=== PATIENT | female | born 1935 | race Caucasian/White ===

== ENCOUNTER 2020-08-06 12:39 | Inpatient (IN) ==
[~2020-08-06 12:39] MED LIST: Total Joint Mixture (50 ml) INTRAART ONE
[2020-08-06] MEDS ORDERED: Gabapentin 100 MG CAPSULE PO ONE (13:17)
[2020-08-06] MEDS ORDERED: Celecoxib 200 MG CAPSULE PO ONE (13:17)
[2020-08-06] MEDS ORDERED: Acetaminophen IV 1,000 MG/100 ML INFUS..BTL IVPB ONE (13:20)
[2020-08-06] MEDS ORDERED: Ethanol\\Acetic Acid\\Na Ace\\Ben 1,000 ML IRRIG.SOLN IR ONE (13:48)
[2020-08-06] MEDS ORDERED: *HR* Propofol 200 MG/20 ML VIAL IVP ONE (13:48)
[2020-08-06] MEDS ORDERED: Vancomycin 1,000 MG VIAL ONE (13:49)
[2020-08-06] MEDS ORDERED: ROPIVACAINE/PF/NS 0.25% 1 EACH SYRINGE INTRAART ONE (13:53)
[2020-08-06] MEDS ORDERED: Clindamycin 900 MG/50 ML 900 MG/50 ML IV.SOLN IVPB ONE (14:08)
[2020-08-06] MEDS ORDERED: Ringers Solution, Lactated 1,000 ML IVC SCH (14:15)
[2020-08-06] MEDS ORDERED: *HR* FentaNYL (PF) 100 MCG/2 ML VIAL ONE (14:37)
[2020-08-06] MEDS ORDERED: Tranexamic Acid 1,000 MG/10 ML VIAL ONE (15:01)
[2020-08-06] MEDS ORDERED: Dexamethasone 4 MG/ML VIAL ONE (15:06)
[2020-08-06] MEDS ORDERED: Ondansetron 4 MG/2 ML VIAL ONE (15:06)
[2020-08-06] MEDS ORDERED: EPHEDrine 50 MG/ML VIAL ONE (15:49)
[2020-08-06 17:44] LABS: Hematocrit 32.3 % (35.3-44.9); Hemoglobin 10.2 g/dL (11.5-15.4)
[2020-08-06] MEDS ORDERED: Dextrose Gel 15 GM/37.5 ML TUBE PO PRN ×2 (17:44)
[2020-08-06] MEDS ORDERED: Ondansetron 4 MG/2 ML VIAL IVP PRN (17:44)
[2020-08-06] MEDS ORDERED: *HR* Promethazine 25 MG/ML VIAL IVP PRN (17:44)
[2020-08-06] MEDS ORDERED: Clindamycin 900 MG/50 ML 900 MG/50 ML IV.SOLN IVPB SCH (17:44)
[2020-08-06] MEDS ORDERED: Naloxone 0.4 MG/ML INJ IVP PRN (17:44)
[2020-08-06] MEDS ORDERED: D5% in Water 1,000 ML IVC PRN (17:44)
[2020-08-06] MEDS ORDERED: Sennosides 8.6 MG TABLET PO PRN (17:44)
[2020-08-06] MEDS ORDERED: HYDROcodone BIT/Homatropine 5 MG TABLET PO PRN (17:44)
[2020-08-06] MEDS ORDERED: MOM Conc 10 ML UD.LIQ PO PRN (17:44)
[2020-08-06] MEDS ORDERED: *HR* Dextrose 50 % in Water (Vial) 50 ML VIAL IVP PRN (17:44)
[2020-08-06] MEDS ORDERED: *HR* OxyCODONE Immed Rel 5 MG TABLET PO ONE (17:44)
[2020-08-06] MEDS: Ringers Solution, Lactated 1,000 ML IVC SCH (18:18)
[2020-08-06] MEDS: Insulin LISPRO 300 UNITS/3 ML VIAL SQ SCH ×2 (18:24→20:26)
[2020-08-06] MEDS: Ascorbic Acid 500 MG TABLET PO SCH (18:25)
[2020-08-06] MEDS: Gabapentin 100 MG CAPSULE PO SCH (20:21)
[2020-08-06] MEDS: *HR* OxyCODONE Immed Rel 5 MG TABLET PO PRN (20:31)
[2020-08-06] MEDS: Clindamycin 900 MG/50 ML 900 MG/50 ML IV.SOLN IVPB SCH (23:53)
[2020-08-07 03:03] LABS: Basophils % 0.2 %; Hematocrit 27.1 % (35.3-44.9); Immature Granulocytes % 0.3 % (0-4); Lymphocytes # 0.7 K/mcL (0.6-4.6); Mean Corpuscular Hemoglobin 29.4 pg (28.0-33.3); Mean Corpuscular Volume 94.8 fL (83.0-100.0); Mean Platelet Volume 10.8 fL (9.4-12.4); Monocytes # 0.2 K/mcL (0.0-1.3); Neutrophils # 5.7 K/mcL (1.6-8.9); Platelet Count 136 K/mcL (140-400); Red Blood Count 2.86 M/mcL (3.82-4.97); Red Cell Distribution Width 15.6 % (11.5-14.5); Segmented Neutrophils % 86.5 %; White Blood Count 6.6 K/mcL (4.3-11.1)
[2020-08-07 03:14] LABS: Hemoglobin 8.4 g/dL (11.5-15.4)
[2020-08-07 03:21] LABS: Calcium 8.6 mg/dL (8.6-10.3); Potassium 4.7 mEq/L (3.5-5.1)
[2020-08-07] MEDS: Ringers Solution, Lactated 1,000 ML IVC SCH (04:17)
[2020-08-07] MEDS: Ascorbic Acid 500 MG TABLET PO SCH ×2 (08:03→19:14)
[2020-08-07] MEDS: Clindamycin 900 MG/50 ML 900 MG/50 ML IV.SOLN IVPB SCH (08:04)
[2020-08-07] MEDS: Gabapentin 100 MG CAPSULE PO SCH ×2 (08:04→19:40)
[2020-08-07] MEDS: Insulin LISPRO 300 UNITS/3 ML VIAL SQ SCH ×4 (08:06→22:48)
[2020-08-07] MEDS: *HR* OxyCODONE Immed Rel 5 MG TABLET PO PRN (08:10)
[2020-08-07] MEDS ORDERED: allopurinoL 100 MG TABLET PO SCH (09:00)
[2020-08-07] MEDS ORDERED: Magnesium Oxide 400 MG TABLET PO SCH (09:00)
[2020-08-07] MEDS ORDERED: Multivit/Ca/Min/Fe/FA 1 TAB TABLET PO SCH (09:00)
[2020-08-07] MEDS ORDERED: Linaclotide [Linzess] 145 MCG PO SCH (09:00)
[2020-08-07] MEDS ORDERED: Cyanocobalamin (B-12) 1,000 MCG TABLET PO SCH (09:00)
[2020-08-07] MEDS ORDERED: Ascorbic Acid 500 MG TABLET PO SCH (09:00)
[2020-08-07] MEDS ORDERED: *HR* Metformin 500 MG TABLET PO SCH (09:00)
[2020-08-07] MEDS ORDERED: amLODIPine 5 MG TABLET PO SCH (09:00)
[2020-08-07] MEDS ORDERED: NON-FORMULARY MEDICATION 1 EACH EACH (Multivitamin [Multivitamins] 1 EACH) PO SCH (09:00)
[2020-08-07] MEDS ORDERED: Cholecalciferol (D-3) 1,000 UNIT (25MCG) TABLET PO SCH (09:00)
[2020-08-07] MEDS ORDERED: Aspirin Enteric Coated 81 MG Tablet PO SCH (12:47)
[2020-08-07] MEDS ORDERED: Scopolamine Patch 1.5 MG PATCH.TD72 TD ONE (16:39)
[2020-08-07] MEDS ORDERED: Isovue-370 500 ML BOTTLE IVP ONE (22:52)
[2020-08-07] MEDS ORDERED: 0.9 % Sodium Chloride 1,000 ML IVC SCH (23:15)
[2020-08-08] MEDS ORDERED: Piperacillin/Tazobactam 3.375 GM in 0.9 % Sodium Chloride Mini Bag 100 ML IVPB SCH ×2 (00:13→08:00)
[2020-08-08 00:51] LABS: Hematocrit 27.4 % (35.3-44.9); Immature Granulocytes % 0.1 % (0-4); Lymphocytes # 0.7 K/mcL (0.6-4.6); Mean Corpuscular HGB Conc 32.8 g/dL (31.6-35.5); Mean Corpuscular Volume 91.3 fL (83.0-100.0); Mean Platelet Volume 10.6 fL (9.4-12.4); Monocytes # 0.4 K/mcL (0.0-1.3); Monocytes % 4.9 %; Platelet Count 149 K/mcL (140-400); Red Cell Distribution Width 15.9 % (11.5-14.5); White Blood Count 7.1 K/mcL (4.3-11.1)
[2020-08-08] MEDS ORDERED: *HR* OxyCODONE Immed Rel 5 MG TABLET PO PRN (01:02)
[2020-08-08 01:06] LABS: Albumin 3.4 g/dL (3.5-5.7); Albumin/Globulin Ratio 1.8 (1.1-2.2); Calcium 8.7 mg/dL (8.6-10.3); Globulin 1.9 g/dL (2.4-3.5); Potassium 4.6 mEq/L (3.5-5.1); Total Protein 5.3 g/dL (6.4-8.9)
[2020-08-08] MEDS ORDERED: *HR* FentaNYL (PF) 100 MCG/2 ML VIAL ONE (01:13)
[2020-08-08] MEDS ORDERED: *HR* Propofol 200 MG/20 ML VIAL IVP ONE (01:13)
[2020-08-08] MEDS ORDERED: Ondansetron 4 MG/2 ML VIAL ONE (01:14)
[2020-08-08] MEDS ORDERED: Dexamethasone 4 MG/ML VIAL ONE (01:14)
[2020-08-08] MEDS ORDERED: *HR* Succinylcholine 200 MG/10 ML VIAL IVP ONE (01:14)
[2020-08-08] MEDS ORDERED: *HR* Rocuronium Bromide 50 MG/5 ML VIAL ONE (01:14)
[2020-08-08] MEDS ORDERED: Lidocaine -MPF 2% 2 ML VIAL ONE (01:14)
[2020-08-08] MEDS: MetroNIDAZOLE 500 MG/100 ML 500 MG/100 ML BAG IVPB SCH ×4 (01:18→23:23)
[2020-08-08 01:24] LABS: Anisocytosis 1+ (Not Present); Platelet Estimate Normal (Normal)
[2020-08-08] MEDS ORDERED: CefOXitin 1,000 MG VIAL ONE (01:36)
[2020-08-08] MEDS ORDERED: Neostigmine Methylsulfate 3 MG/3 ML SYRINGE ONE (02:37)
[2020-08-08] MEDS ORDERED: *HR* HYDROMORPHONE 2 MG/ML VIAL ONE (02:49)
[2020-08-08] MEDS: *HR* HYDROmorphone PF 0.5 MG/0.5 ML SYRINGE IVP PRN ×2 (03:26→03:50)
[2020-08-08] MEDS ORDERED: Dextrose Gel 15 GM/37.5 ML TUBE PO PRN ×2 (04:18)
[2020-08-08] MEDS ORDERED: D5% in Water 1,000 ML IVC PRN (04:18)
[2020-08-08] MEDS ORDERED: *HR* Dextrose 50 % in Water (Vial) 50 ML VIAL IVP PRN (04:18)
[2020-08-08] MEDS: 0.9 % Sodium Chloride 1,000 ML IVC SCH ×2 (04:36→23:19)
[2020-08-08 05:41] LABS: Hematocrit 28.1 % (35.3-44.9); Hemoglobin 8.8 g/dL (11.5-15.4); Mean Corpuscular HGB Conc 31.3 g/dL (31.6-35.5); Mean Corpuscular Hemoglobin 29.1 pg (28.0-33.3); Mean Platelet Volume 11.4 fL (9.4-12.4); Platelet Count 132 K/mcL (140-400); Red Blood Count 3.02 M/mcL (3.82-4.97); Red Cell Distribution Width 16.1 % (11.5-14.5); White Blood Count 5.7 K/mcL (4.3-11.1)
[2020-08-08 05:59] LABS: Calcium 8.6 mg/dL (8.6-10.3); Potassium 4.7 mEq/L (3.5-5.1)
[2020-08-08 06:14] LABS: Lymphocytes # 0.2 K/mcL (0.6-4.6); Monocytes # 0.1 K/mcL (0.0-1.3); Neutrophils # 5.1 K/mcL (1.6-8.9); Platelet Estimate Slight Decrease (Normal); Toxic Granulation Present (Not Present); Toxic Vacuolation Present (Not Present)
[2020-08-08] MEDS: Cyanocobalamin (B-12) 1,000 MCG TABLET PO SCH (08:28)
[2020-08-08] MEDS: Insulin LISPRO 300 UNITS/3 ML VIAL SQ SCH ×4 (08:28→20:55)
[2020-08-08] MEDS: Morphine Sulfate 2 MG/ML SYRINGE IVP PRN (08:29)
[2020-08-08] MEDS ORDERED: Acetaminophen IV 1,000 MG/100 ML INFUS..BTL IVPB ONE ×2 (09:22→20:33)
[2020-08-08 15:30] LABS: Hematocrit 30.8 % (35.3-44.9); Hemoglobin 9.7 g/dL (11.5-15.4)
[2020-08-09 01:14] LABS: Hematocrit 26.7 % (35.3-44.9); Hemoglobin 8.5 g/dL (11.5-15.4)
[2020-08-09 01:16] LABS: Calcium 8.3 mg/dL (8.6-10.3); Potassium 4.5 mEq/L (3.5-5.1)
[2020-08-09 01:19] LABS: Hematocrit 27.2 % (35.3-44.9); Hemoglobin 8.6 g/dL (11.5-15.4); Mean Corpuscular HGB Conc 31.6 g/dL (31.6-35.5); Mean Corpuscular Hemoglobin 29.1 pg (28.0-33.3); Mean Corpuscular Volume 91.9 fL (83.0-100.0); Mean Platelet Volume 11.5 fL (9.4-12.4); Monocytes # 0.6 K/mcL (0.0-1.3); Nucleated Red Blood Cells 0.2 /100 WBC (0); Platelet Count 124 K/mcL (140-400); Red Blood Count 2.96 M/mcL (3.82-4.97); Red Cell Distribution Width 16.2 % (11.5-14.5); White Blood Count 9.7 K/mcL (4.3-11.1)
[2020-08-09 01:53] LABS: Lymphocytes # 1.8 K/mcL (0.6-4.6); Neutrophils # 7.4 K/mcL (1.6-8.9)
[2020-08-09 01:54] LABS: Platelet Estimate Normal (Normal)
[2020-08-09] MEDS ORDERED: Acetaminophen IV 1,000 MG/100 ML INFUS..BTL IVPB PRN (02:11)
[2020-08-09] MEDS: Morphine Sulfate 2 MG/ML SYRINGE IVP PRN ×4 (04:38→18:05)
[2020-08-09 05:11] LABS: Calcium 8.4 mg/dL (8.6-10.3)
[2020-08-09] MEDS: Cyanocobalamin (B-12) 1,000 MCG TABLET PO SCH (09:55)
[2020-08-09] MEDS: Insulin LISPRO 300 UNITS/3 ML VIAL SQ SCH ×4 (09:56→23:17)
[2020-08-09] MEDS: MetroNIDAZOLE 500 MG/100 ML 500 MG/100 ML BAG IVPB SCH ×3 (09:58→23:16)
[2020-08-09] MEDS ORDERED: Chloraseptic Spray 177 ML BOTTLE MM PRN (13:46)
[2020-08-09] MEDS ORDERED: Ipratropium/Albuterol Neb 3 ML IH PRN (18:05)
[2020-08-09] MEDS ORDERED: Ipratropium/Albuterol Neb 3 ML IH ONE (18:05)
[2020-08-09] MEDS: 0.9 % Sodium Chloride 1,000 ML IVC SCH (23:17)
[2020-08-10] MEDS: Morphine Sulfate 2 MG/ML SYRINGE IVP PRN ×3 (04:52→16:41)
[2020-08-10] MEDS ORDERED: *HR* Dextrose 50 % in Water (Vial) 50 ML VIAL IVP PRN (05:50)
[2020-08-10] MEDS ORDERED: D5% in Water 1,000 ML IVC PRN (05:50)
[2020-08-10] MEDS ORDERED: Dextrose Gel 15 GM/37.5 ML TUBE PO PRN ×2 (05:50)
[2020-08-10 06:16] LABS: BUN/Creatinine Ratio 39 (6-26); Blood Urea Nitrogen 39 mg/dL (8-23); Carbon Dioxide 32 mEq/L (23-29); Chloride 107 mEq/L (98-107); Glucose 135 mg/dL (70-105); Osmolality,Calculated 315 (280-300); Potassium 4.1 mEq/L (3.5-5.1); Sodium 147 mEq/L (136-145); eGFR For African Americans > 60 (> 60); eGFR For Non-African Americans 52 (> 60)
[2020-08-10 06:39] LABS: Basophils % 0.2 %
[2020-08-10 06:41] LABS: Eosinophils % 0.2 %; Hematocrit 26.3 % (35.3-44.9); Immature Platelets 8.2 % (1.1-6.1); Lymphocytes # 1.3 K/mcL (0.6-4.6); Lymphocytes % 12.7 %; Mean Corpuscular HGB Conc 30.4 g/dL (31.6-35.5); Mean Corpuscular Hemoglobin 29.6 pg (28.0-33.3); Mean Corpuscular Volume 97.4 fL (83.0-100.0); Mean Platelet Volume 11.6 fL (9.4-12.4); Monocytes # 0.6 K/mcL (0.0-1.3); Platelet Count 145 K/mcL (140-400); Red Cell Distribution Width 16.3 % (11.5-14.5); Segmented Neutrophils % 79.9 %
[2020-08-10] MEDS: Insulin LISPRO 300 UNITS/3 ML VIAL SQ SCH ×3 (08:29→20:55)
[2020-08-10] MEDS: Cyanocobalamin (B-12) 1,000 MCG TABLET PO SCH (09:10)
[2020-08-10] MEDS: *HR* Metoprolol 5 MG/5 ML VIAL IVP PRN ×2 (09:25→16:40)
[2020-08-10] MEDS: MetroNIDAZOLE 500 MG/100 ML 500 MG/100 ML BAG IVPB SCH ×2 (09:25→16:41)
[2020-08-10] MEDS ORDERED: Lidocaine -MPF 1% 5 ML AMPUL INFILT ONE (11:24)
[2020-08-10] MEDS ORDERED: 0.9 % Sodium Chloride 1,000 ML IVC SCH (11:35)
[2020-08-10 12:17] LABS: BUN/Creatinine Ratio 40 (6-26); Blood Urea Nitrogen 37 mg/dL (8-23); Calcium 8.6 mg/dL (8.6-10.3); Carbon Dioxide 35 mEq/L (23-29); Chloride 107 mEq/L (98-107); Glucose 131 mg/dL (70-105); Osmolality,Calculated 314 (280-300); Phosphorous 2.4 mg/dL (2.7-4.5); Potassium 3.8 mEq/L (3.5-5.1); Sodium 147 mEq/L (136-145); eGFR For African Americans > 60 (> 60); eGFR For Non-African Americans 58 (> 60)
[2020-08-10] MEDS ORDERED: *HR* Labetalol 20 MG/4 ML SYRINGE IVP PRN (16:39)
[2020-08-10] MEDS ORDERED: *HR* Metoprolol 5 MG/5 ML VIAL IVP STA (16:40)
[2020-08-10] MEDS ORDERED: *HR* Metoprolol 5 MG/5 ML VIAL IVP PRN (16:46)
[2020-08-10] MEDS ORDERED: Perflutren Lipid Microsphere 1.3 ML in 0.9 % Sodium Chloride 8.7 ML IVP PRN (16:58)
[2020-08-10] MEDS ORDERED: *HR* Heparin 5,000 UNIT/ML VIAL IVP ONE (17:08)
[2020-08-10] MEDS ORDERED: *HR* Heparin 5,000 UNIT/ML VIAL IVP PRN ×2 (17:08)
[2020-08-10 18:02] LABS: BUN/Creatinine Ratio 40 (6-26); Blood Urea Nitrogen 34 mg/dL (8-23); Calcium 8.7 mg/dL (8.6-10.3); Carbon Dioxide 33 mEq/L (23-29); Chloride 108 mEq/L (98-107); Glucose 140 mg/dL (70-105); Osmolality,Calculated 318 (280-300); Potassium 3.6 mEq/L (3.5-5.1); Sodium 149 mEq/L (136-145); Troponin I < 0.03 ng/mL (< 0.04); eGFR For African Americans > 60 (> 60); eGFR For Non-African Americans > 60 (> 60)
[2020-08-10] MEDS ORDERED: 0.9 % Sodium Chloride 1,000 ML ONE (18:07)
[2020-08-10 18:13] LABS: Thyroid Stimulating Hormone 0.312 mcIU/mL (0.340-5.600)
[2020-08-10] MEDS: DilTIAZem 50 MG/50 ML IV.SOLN IVC SCH (18:17)
[2020-08-10] MEDS: Heparin 25,000UNIT/250ML 1/2NS 25,000 UNIT/250 ML IV.SOLN IVC SCH (19:37)
[2020-08-11] MEDS: MetroNIDAZOLE 500 MG/100 ML 500 MG/100 ML BAG IVPB SCH ×3 (00:03→17:09)
[2020-08-11] MEDS: Insulin LISPRO 300 UNITS/3 ML VIAL SQ SCH ×4 (00:07→18:57)
[2020-08-11] MEDS: DilTIAZem 50 MG/50 ML IV.SOLN IVC SCH (00:39)
[2020-08-11 04:38] LABS: Basophils % 0.2 %; Eosinophils % 0.3 %; Hematocrit 24.3 % (35.3-44.9); Hemoglobin 7.4 g/dL (11.5-15.4); Lymphocytes # 1.3 K/mcL (0.6-4.6); Lymphocytes % 12.4 %; Mean Corpuscular HGB Conc 30.5 g/dL (31.6-35.5); Mean Corpuscular Hemoglobin 29.2 pg (28.0-33.3); Mean Platelet Volume 10.7 fL (9.4-12.4); Monocytes # 0.8 K/mcL (0.0-1.3); Neutrophils # 7.9 K/mcL (1.6-8.9); Platelet Count 157 K/mcL (140-400); Red Blood Count 2.53 M/mcL (3.82-4.97); Segmented Neutrophils % 77.1 %; White Blood Count 10.2 K/mcL (4.3-11.1)
[2020-08-11 04:56] LABS: BUN/Creatinine Ratio 44 (6-26); Blood Urea Nitrogen 37 mg/dL (8-23); Calcium 8.6 mg/dL (8.6-10.3); Carbon Dioxide 35 mEq/L (23-29); Chloride 108 mEq/L (98-107); Glucose 142 mg/dL (70-105); Magnesium 1.9 mg/dL (1.6-2.6); Osmolality,Calculated 319 (280-300); Phosphorous 2.3 mg/dL (2.7-4.5); Potassium 3.6 mEq/L (3.5-5.1); Sodium 149 mEq/L (136-145); eGFR For African Americans > 60 (> 60); eGFR For Non-African Americans > 60 (> 60)
[2020-08-11] MEDS: Cyanocobalamin (B-12) 1,000 MCG TABLET PO SCH (07:59)
[2020-08-11 08:23] LABS: Hematocrit 22.3 % (35.3-44.9); Hemoglobin 6.8 g/dL (11.5-15.4)
[2020-08-11] MEDS ORDERED: 0.9 % Sodium Chloride 250 ML ONE ×2 (09:38→17:01)
[2020-08-11] MEDS ORDERED: Chloraseptic Spray 177 ML BOTTLE MM PRN (09:46)
[2020-08-11] MEDS: Morphine Sulfate 2 MG/ML SYRINGE IVP PRN ×3 (10:29→21:55)
[2020-08-11] MEDS: Heparin 25,000UNIT/250ML 1/2NS 25,000 UNIT/250 ML IV.SOLN IVC SCH (18:57)
[2020-08-11] MEDS: *HR* Labetalol 20 MG/4 ML SYRINGE IVP PRN (20:51)
[2020-08-11] MEDS: 0.9 % Sodium Chloride 1,000 ML IVC SCH (21:19)
[2020-08-11 22:18] LABS: Hematocrit 31.2 % (35.3-44.9); Hemoglobin 9.9 g/dL (11.5-15.4)
[2020-08-11 22:28] LABS: BUN/Creatinine Ratio 47 (6-26); Blood Urea Nitrogen 36 mg/dL (8-23); Calcium 8.4 mg/dL (8.6-10.3); Carbon Dioxide 36 mEq/L (23-29); Chloride 109 mEq/L (98-107); Glucose 126 mg/dL (70-105); Osmolality,Calculated 318 (280-300); Potassium 3.5 mEq/L (3.5-5.1); Sodium 149 mEq/L (136-145); eGFR For African Americans > 60 (> 60); eGFR For Non-African Americans > 60 (> 60)
[2020-08-12] MEDS: MetroNIDAZOLE 500 MG/100 ML 500 MG/100 ML BAG IVPB SCH ×4 (00:50→23:50)
[2020-08-12] MEDS: Morphine Sulfate 2 MG/ML SYRINGE IVP PRN ×3 (01:06→21:53)
[2020-08-12] MEDS: Insulin LISPRO 300 UNITS/3 ML VIAL SQ SCH ×4 (01:10→23:32)
[2020-08-12] MEDS: Heparin 25,000UNIT/250ML 1/2NS 25,000 UNIT/250 ML IV.SOLN IVC SCH ×2 (04:25→23:31)
[2020-08-12 04:53] LABS: BUN/Creatinine Ratio 45 (6-26); Blood Urea Nitrogen 35 mg/dL (8-23); Calcium 8.3 mg/dL (8.6-10.3); Carbon Dioxide 37 mEq/L (23-29); Chloride 109 mEq/L (98-107); Glucose 137 mg/dL (70-105); Magnesium 1.9 mg/dL (1.6-2.6); Osmolality,Calculated 318 (280-300); Phosphorous 2.7 mg/dL (2.7-4.5); Potassium 3.7 mEq/L (3.5-5.1); Sodium 149 mEq/L (136-145); eGFR For African Americans > 60 (> 60); eGFR For Non-African Americans > 60 (> 60)
[2020-08-12 06:59] LABS: Hematocrit 31.2 % (35.3-44.9); Hemoglobin 9.8 g/dL (11.5-15.4)
[2020-08-12] MEDS: Cyanocobalamin (B-12) 1,000 MCG TABLET PO SCH (08:37)
[2020-08-12] MEDS ORDERED: D5% in 0.45% NACL w KCl 10 MEQ/1,000 ML MLS IVC SCH (09:15)
[2020-08-12] MEDS: Pantoprazole 40 MG VIAL IVP SCH (13:15)
[2020-08-12] MEDS: *HR* Labetalol 20 MG/4 ML SYRINGE IVP PRN (17:23)
[2020-08-12] MEDS: DilTIAZem 50 MG/50 ML IV.SOLN IVC SCH (21:43)
[2020-08-13] MEDS: Morphine Sulfate 2 MG/ML SYRINGE IVP PRN ×4 (00:01→21:35)
[2020-08-13] MEDS: Insulin LISPRO 300 UNITS/3 ML VIAL SQ SCH ×4 (00:08→17:18)
[2020-08-13 04:34] LABS: BUN/Creatinine Ratio 42 (6-26); Blood Urea Nitrogen 32 mg/dL (8-23); Calcium 8.2 mg/dL (8.6-10.3); Carbon Dioxide 38 mEq/L (23-29); Chloride 108 mEq/L (98-107); Glucose 157 mg/dL (70-105); Magnesium 1.9 mg/dL (1.6-2.6); Osmolality,Calculated 318 (280-300); Phosphorous 2.5 mg/dL (2.7-4.5); Potassium 3.6 mEq/L (3.5-5.1); Sodium 149 mEq/L (136-145); eGFR For African Americans > 60 (> 60); eGFR For Non-African Americans > 60 (> 60)
[2020-08-13 05:01] LABS: Basophils % 0.3 %; Eosinophils # 0.1 K/mcL (0.0-0.6); Eosinophils % 0.7 %; Hematocrit 29.8 % (35.3-44.9); Hemoglobin 9.2 g/dL (11.5-15.4); Immature Granulocytes % 3.7 % (0-4); Lymphocytes # 1.2 K/mcL (0.6-4.6); Lymphocytes % 12.9 %; Mean Corpuscular HGB Conc 30.9 g/dL (31.6-35.5); Monocytes # 0.8 K/mcL (0.0-1.3); Monocytes % 8.5 %; Nucleated Red Blood Cells 0.2 /100 WBC (0); Platelet Count 138 K/mcL (140-400); Red Blood Count 3.17 M/mcL (3.82-4.97); Red Cell Distribution Width 16.1 % (11.5-14.5); Segmented Neutrophils % 73.9 %; White Blood Count 9.4 K/mcL (4.3-11.1)
[2020-08-13] MEDS: Pantoprazole 40 MG VIAL IVP SCH (07:21)
[2020-08-13] MEDS: MetroNIDAZOLE 500 MG/100 ML 500 MG/100 ML BAG IVPB SCH ×2 (07:22→17:15)
[2020-08-13] MEDS: Cyanocobalamin (B-12) 1,000 MCG TABLET PO SCH (07:22)
[2020-08-13] MEDS: Metoprolol XL (24 HR) Succ 25 MG TAB.ER.24H PO SCH (10:32)
[2020-08-13] MEDS ORDERED: D5% in 0.45% NACL w KCl 10 MEQ/1,000 ML MLS IVC SCH (10:53)
[2020-08-13 14:42] LABS: BUN/Creatinine Ratio 37 (6-26); Blood Urea Nitrogen 25 mg/dL (8-23); Calcium 7.2 mg/dL (8.6-10.3); Carbon Dioxide 31 mEq/L (23-29); Chloride 104 mEq/L (98-107); Glucose 649 mg/dL (70-105); Osmolality,Calculated 323 (280-300); Potassium 4.4 mEq/L (3.5-5.1); Sodium 139 mEq/L (136-145); eGFR For African Americans > 60 (> 60); eGFR For Non-African Americans > 60 (> 60)
[2020-08-13 16:50] LABS: BUN/Creatinine Ratio 39 (6-26); Blood Urea Nitrogen 27 mg/dL (8-23); Calcium 8.4 mg/dL (8.6-10.3); Carbon Dioxide 35 mEq/L (23-29); Chloride 107 mEq/L (98-107); Glucose 168 mg/dL (70-105); Osmolality,Calculated 309 (280-300); Potassium 3.4 mEq/L (3.5-5.1); Sodium 145 mEq/L (136-145); eGFR For African Americans > 60 (> 60); eGFR For Non-African Americans > 60 (> 60)
[2020-08-13] MEDS: Ringers Solution, Lactated 1,000 ML IVC SCH (21:35)
[2020-08-14] MEDS: MetroNIDAZOLE 500 MG/100 ML 500 MG/100 ML BAG IVPB SCH ×2 (01:04→08:31)
[2020-08-14] MEDS ORDERED: Melatonin 3 MG TABLET PO STA (03:21)
[2020-08-14] MEDS: *HR* Labetalol 20 MG/4 ML SYRINGE IVP PRN (04:31)
[2020-08-14 05:06] LABS: Hematocrit 28.3 % (35.3-44.9); Hemoglobin 8.8 g/dL (11.5-15.4); Mean Corpuscular HGB Conc 31.1 g/dL (31.6-35.5); Mean Corpuscular Hemoglobin 29.5 pg (28.0-33.3); Mean Platelet Volume 10.9 fL (9.4-12.4); Platelet Count 126 K/mcL (140-400); Red Blood Count 2.98 M/mcL (3.82-4.97); Red Cell Distribution Width 15.4 % (11.5-14.5); White Blood Count 10.6 K/mcL (4.3-11.1)
[2020-08-14 05:15] LABS: BUN/Creatinine Ratio 32 (6-26); Blood Urea Nitrogen 21 mg/dL (8-23); Calcium 7.8 mg/dL (8.6-10.3); Carbon Dioxide 34 mEq/L (23-29); Chloride 106 mEq/L (98-107); Glucose 132 mg/dL (70-105); Osmolality,Calculated 301 (280-300); Potassium 3.5 mEq/L (3.5-5.1); Sodium 143 mEq/L (136-145); eGFR For African Americans > 60 (> 60); eGFR For Non-African Americans > 60 (> 60)
[2020-08-14] MEDS: Pantoprazole 40 MG VIAL IVP SCH (08:30)
[2020-08-14] MEDS: Cyanocobalamin (B-12) 1,000 MCG TABLET PO SCH (08:31)
[2020-08-14] MEDS: Metoprolol XL (24 HR) Succ 25 MG TAB.ER.24H PO SCH (08:31)
[2020-08-14] MEDS: Insulin LISPRO 300 UNITS/3 ML VIAL SQ SCH ×4 (08:39→20:49)
[2020-08-14] MEDS ORDERED: Acetaminophen 325 MG TABLET PO PRN (11:57)
[2020-08-14] MEDS: Ringers Solution, Lactated 1,000 ML IVC SCH ×2 (12:28→23:52)
[2020-08-14] MEDS: Ondansetron 4 MG/2 ML VIAL IVP PRN ×2 (12:44→21:01)
[2020-08-14 14:59] LABS: Hematocrit 31.1 % (35.3-44.9); Hemoglobin 9.9 g/dL (11.5-15.4)
[2020-08-14] MEDS: amLODIPine 5 MG TABLET PO SCH (15:12)
[2020-08-14] MEDS: *HR* OxyCODONE Immed Rel 5 MG TABLET PO PRN (21:00)
[2020-08-14] MEDS: *HR* HYDROcodone/Acet 5/325 mg TABLET PO PRN (23:51)
[2020-08-15] MEDS: Insulin LISPRO 300 UNITS/3 ML VIAL SQ SCH ×4 (08:08→21:06)
[2020-08-15] MEDS: Cyanocobalamin (B-12) 1,000 MCG TABLET PO SCH (08:09)
[2020-08-15] MEDS: amLODIPine 5 MG TABLET PO SCH (08:09)
[2020-08-15] MEDS: Metoprolol XL (24 HR) Succ 25 MG TAB.ER.24H PO SCH (08:09)
[2020-08-15 10:11] LABS: Hematocrit 29.9 % (35.3-44.9); Hemoglobin 9.4 g/dL (11.5-15.4); Mean Corpuscular HGB Conc 31.4 g/dL (31.6-35.5); Mean Corpuscular Volume 95.5 fL (83.0-100.0); Mean Platelet Volume 11.3 fL (9.4-12.4); Platelet Count 152 K/mcL (140-400); Red Blood Count 3.13 M/mcL (3.82-4.97); Red Cell Distribution Width 15.1 % (11.5-14.5); White Blood Count 11.7 K/mcL (4.3-11.1)
[2020-08-15 10:28] LABS: BUN/Creatinine Ratio 31 (6-26); Blood Urea Nitrogen 21 mg/dL (8-23); Calcium 7.8 mg/dL (8.6-10.3); Carbon Dioxide 31 mEq/L (23-29); Chloride 104 mEq/L (98-107); Glucose 156 mg/dL (70-105); Osmolality,Calculated 296 (280-300); Potassium 3.3 mEq/L (3.5-5.1); Sodium 140 mEq/L (136-145); eGFR For African Americans > 60 (> 60); eGFR For Non-African Americans > 60 (> 60)
[2020-08-15] MEDS ORDERED: Melatonin 3 MG TABLET PO ONE (22:44)
[2020-08-15] MEDS: *HR* OxyCODONE Immed Rel 5 MG TABLET PO PRN (23:12)
[2020-08-16 06:57] LABS: Hemoglobin 8.8 g/dL (11.5-15.4); Mean Corpuscular HGB Conc 31.4 g/dL (31.6-35.5); Mean Corpuscular Hemoglobin 29.2 pg (28.0-33.3); Mean Platelet Volume 10.6 fL (9.4-12.4); Platelet Count 151 K/mcL (140-400); Red Blood Count 3.01 M/mcL (3.82-4.97); Red Cell Distribution Width 15.2 % (11.5-14.5); White Blood Count 12.5 K/mcL (4.3-11.1)
[2020-08-16 07:11] LABS: BUN/Creatinine Ratio 30 (6-26); Blood Urea Nitrogen 22 mg/dL (8-23); Carbon Dioxide 31 mEq/L (23-29); Chloride 104 mEq/L (98-107); Glucose 114 mg/dL (70-105); Osmolality,Calculated 290 (280-300); Potassium 4.2 mEq/L (3.5-5.1); Sodium 138 mEq/L (136-145); eGFR For African Americans > 60 (> 60); eGFR For Non-African Americans > 60 (> 60)
[2020-08-16] MEDS: Ringers Solution, Lactated 1,000 ML IVC SCH ×2 (07:55→07:56)
[2020-08-16] MEDS: Insulin LISPRO 300 UNITS/3 ML VIAL SQ SCH ×3 (07:55→13:44)
[2020-08-16] MEDS: amLODIPine 5 MG TABLET PO SCH (08:39)
[2020-08-16] MEDS: Metoprolol XL (24 HR) Succ 25 MG TAB.ER.24H PO SCH (08:40)
[2020-08-16] MEDS: Cyanocobalamin (B-12) 1,000 MCG TABLET PO SCH (08:40)
[2020-08-16] MEDS ORDERED: Furosemide 20 MG/2 ML VIAL IVP ONE (10:10)
[2020-08-16 10:32] VITALS: BP 139/67
[2020-08-16] MEDS: *HR* HYDROcodone/Acet 5/325 mg TABLET PO PRN (13:50)
[2020-08-16 14:07] LABS: Adenovirus Not Detected (Not Detect); Bordetella Pertussis Not Detected (Not Detect); Chlamydophila pneumoniae Not Detected (Not Detect); Coronavirus 229E Not Detected (Not Detect); Coronavirus HKU1 Not Detected (Not Detect); Coronavirus NL63 Not Detected (Not Detect); Coronavirus OC43 Not Detected (Not Detect); Human Metapneumovirus Not Detected (Not Detect); Human Rhinovirus/Enterovirus Not Detected (Not Detect); Influenza A Subtype 2009 H1 Not Detected (Not Detect); Influenza B Not Detected (Not Detect); Mycoplasma pneumoniae Not Detected (Not Detect); Parainfluenza Virus 1 Not Detected (Not Detect); Parainfluenza Virus 2 Not Detected (Not Detect); Parainfluenza Virus 3 Not Detected (Not Detect); Parainfluenza Virus 4 Not Detected (Not Detect); Respiratory Syncytial Virus Not Detected (Not Detect); SARS-CoV-2 Not Detected (Not Detect)
== END 2020-08-16 14:54 | DRG 462 ==
LOC: SAMDAY 12:39 → 3NENU 17:41 → SUATTDRO 08-07 15:19 → 2NNU 08-11 18:17 → 3ANU 08-13 16:04
PROVIDERS: ADMIT Orthopaedic Surgery; ATTEND Internal Medicine

== ENCOUNTER 2020-08-27 10:21 | Inpatient (IN) ==
[2020-08-27] MEDS ORDERED: Acetaminophen 325 MG TABLET PO PRN (14:32)
[2020-08-27] MEDS ORDERED: Naloxone 0.4 MG/ML INJ IVP PRN (14:32)
[2020-08-27] MEDS ORDERED: Ondansetron 4 MG/2 ML VIAL IVP PRN (14:32)
[2020-08-27] MEDS ORDERED: *HR* Dextrose 50 % in Water (Vial) 50 ML VIAL IVP PRN (14:39)
[2020-08-27] MEDS ORDERED: D5% in Water 1,000 ML IVC PRN (14:39)
[2020-08-27] MEDS ORDERED: Dextrose Gel 15 GM/37.5 ML TUBE PO PRN ×2 (14:39)
[2020-08-27] MEDS ORDERED: 0.9 % Sodium Chloride 1,000 ML IVC SCH (14:45)
[2020-08-27] MEDS ORDERED: 0.9 % Sodium Chloride 250 ML IVC SCH (15:45)
[2020-08-27] MEDS: *HR* OxyCODONE Immed Rel 5 MG TABLET PO PRN ×2 (16:21→23:06)
[2020-08-27] MEDS: Insulin LISPRO 300 UNITS/3 ML VIAL SQ SCH ×2 (17:00→23:04)
[2020-08-27 18:08] LABS: INR 1.1; Prothrombin Time 13.2 Seconds (9.4-12.1)
[2020-08-27 18:23] LABS: Hematocrit 20.9 % (35.3-44.9); Hemoglobin 6.6 g/dL (11.5-15.4)
[2020-08-27] MEDS ORDERED: *HR* Midazolam HCl 2 MG/2 ML VIAL ONE (19:09)
[2020-08-27] MEDS ORDERED: *HR* FentaNYL (PF) 100 MCG/2 ML VIAL ONE (19:09)
[2020-08-27] MEDS ORDERED: *HR* Heparin 10,000 UNIT/10 ML VIAL ONE (19:10)
[2020-08-27] MEDS ORDERED: 0.9 % Sodium Chloride 2,000 ML ONE (19:10)
[2020-08-28 06:35] LABS: Hematocrit 23.8 % (35.3-44.9); Hemoglobin 7.8 g/dL (11.5-15.4); Mean Corpuscular HGB Conc 32.8 g/dL (31.6-35.5); Mean Corpuscular Volume 88.5 fL (83.0-100.0); Mean Platelet Volume 10.3 fL (9.4-12.4); Platelet Count 139 K/mcL (140-400); Red Blood Count 2.69 M/mcL (3.82-4.97); Red Cell Distribution Width 17.2 % (11.5-14.5); White Blood Count 11.6 K/mcL (4.3-11.1)
[2020-08-28 06:38] LABS: INR 1.1; Prothrombin Time 12.6 Seconds (9.4-12.1)
[2020-08-28 06:41] LABS: Activated Partial Thrombo Time 28.6 Seconds (26.0-36.0)
[2020-08-28 07:27] LABS: BUN/Creatinine Ratio 60 (6-26); Blood Urea Nitrogen 61 mg/dL (8-23); Calcium 8.3 mg/dL (8.6-10.3); Carbon Dioxide 24 mEq/L (23-29); Chloride 107 mEq/L (98-107); Glucose 149 mg/dL (70-105); Osmolality,Calculated 306 (280-300); Potassium 5.2 mEq/L (3.5-5.1); Sodium 138 mEq/L (136-145); eGFR For African Americans > 60 (> 60); eGFR For Non-African Americans 52 (> 60)
[2020-08-28] MEDS: *HR* OxyCODONE Immed Rel 5 MG TABLET PO PRN ×4 (08:01→20:56)
[2020-08-28] MEDS: Insulin LISPRO 300 UNITS/3 ML VIAL SQ SCH ×4 (08:09→20:49)
[2020-08-28] MEDS ORDERED: 0.9 % Sodium Chloride 250 ML IVC SCH (09:00)
[2020-08-28] MEDS ORDERED: Isovue-370 500 ML BOTTLE IVP ONE (10:36)
[2020-08-28 17:00] LABS: Hematocrit 27.3 % (35.3-44.9); Hemoglobin 8.7 g/dL (11.5-15.4)
[2020-08-29] MEDS: *HR* OxyCODONE Immed Rel 5 MG TABLET PO PRN ×2 (04:30→10:35)
[2020-08-29 07:23] LABS: BUN/Creatinine Ratio 45 (6-26); Blood Urea Nitrogen 38 mg/dL (8-23); Calcium 7.9 mg/dL (8.6-10.3); Carbon Dioxide 24 mEq/L (23-29); Chloride 108 mEq/L (98-107); Glucose 160 mg/dL (70-105); Osmolality,Calculated 296 (280-300); Potassium 4.6 mEq/L (3.5-5.1); Sodium 137 mEq/L (136-145); eGFR For African Americans > 60 (> 60); eGFR For Non-African Americans > 60 (> 60)
[2020-08-29 07:25] LABS: Hematocrit 23.8 % (35.3-44.9); Hemoglobin 7.8 g/dL (11.5-15.4); Mean Corpuscular HGB Conc 32.8 g/dL (31.6-35.5); Mean Corpuscular Hemoglobin 29.3 pg (28.0-33.3); Mean Corpuscular Volume 89.5 fL (83.0-100.0); Platelet Count 123 K/mcL (140-400); Red Blood Count 2.66 M/mcL (3.82-4.97); Red Cell Distribution Width 16.4 % (11.5-14.5); White Blood Count 14.1 K/mcL (4.3-11.1)
[2020-08-29] MEDS: Insulin LISPRO 300 UNITS/3 ML VIAL SQ SCH ×4 (08:01→20:36)
[2020-08-29] MEDS ORDERED: Isovue-370 500 ML BOTTLE IVP ONE (10:00)
[2020-08-29 10:23] LABS: INR 1.1
[2020-08-29] MEDS: Magnesium Oxide 400 MG TABLET PO SCH (15:32)
[2020-08-29 16:25] LABS: Hematocrit 22.5 % (35.3-44.9); Hemoglobin 7.2 g/dL (11.5-15.4)
[2020-08-29] MEDS: Gabapentin 100 MG CAPSULE PO SCH (20:47)
[2020-08-30 06:17] LABS: Hematocrit 20.9 % (35.3-44.9); Hemoglobin 6.5 g/dL (11.5-15.4); Mean Corpuscular HGB Conc 31.1 g/dL (31.6-35.5); Mean Corpuscular Hemoglobin 28.9 pg (28.0-33.3); Mean Corpuscular Volume 92.9 fL (83.0-100.0); Mean Platelet Volume 11.2 fL (9.4-12.4); Platelet Count 113 K/mcL (140-400); Red Blood Count 2.25 M/mcL (3.82-4.97); Red Cell Distribution Width 16.5 % (11.5-14.5); White Blood Count 9.9 K/mcL (4.3-11.1)
[2020-08-30 06:30] LABS: BUN/Creatinine Ratio 40 (6-26); Blood Urea Nitrogen 34 mg/dL (8-23); Calcium 7.8 mg/dL (8.6-10.3); Carbon Dioxide 26 mEq/L (23-29); Chloride 107 mEq/L (98-107); Glucose 120 mg/dL (70-105); Osmolality,Calculated 293 (280-300); Potassium 4.2 mEq/L (3.5-5.1); Sodium 137 mEq/L (136-145); eGFR For African Americans > 60 (> 60); eGFR For Non-African Americans > 60 (> 60)
[2020-08-30] MEDS: Cyanocobalamin (B-12) 1,000 MCG TABLET PO SCH (08:52)
[2020-08-30] MEDS: Gabapentin 100 MG CAPSULE PO SCH ×2 (08:52→20:35)
[2020-08-30] MEDS: Cholecalciferol (D-3) 1,000 UNIT (25MCG) TABLET PO SCH (08:52)
[2020-08-30] MEDS: amLODIPine 5 MG TABLET PO SCH (08:52)
[2020-08-30] MEDS: (Linaclotide [Linzess] 145 MCG) PO SCH (08:52)
[2020-08-30] MEDS: Insulin LISPRO 300 UNITS/3 ML VIAL SQ SCH ×4 (08:52→20:27)
[2020-08-30] MEDS: allopurinoL 100 MG TABLET PO SCH (08:52)
[2020-08-30] MEDS ORDERED: 0.9 % Sodium Chloride 250 ML ONE (09:18)
[2020-08-30 17:48] LABS: Hematocrit 25.2 % (35.3-44.9)
[2020-08-30] MEDS: *HR* OxyCODONE Immed Rel 5 MG TABLET PO PRN (20:35)
[2020-08-31] MEDS: *HR* OxyCODONE Immed Rel 5 MG TABLET PO PRN (06:23)
[2020-08-31 07:24] LABS: Hematocrit 26.9 % (35.3-44.9); Hemoglobin 8.9 g/dL (11.5-15.4); Mean Corpuscular HGB Conc 33.1 g/dL (31.6-35.5); Mean Corpuscular Hemoglobin 29.7 pg (28.0-33.3); Mean Corpuscular Volume 89.7 fL (83.0-100.0); Mean Platelet Volume 10.4 fL (9.4-12.4); Platelet Count 147 K/mcL (140-400); Red Cell Distribution Width 16.2 % (11.5-14.5); White Blood Count 9.8 K/mcL (4.3-11.1)
[2020-08-31 07:27] LABS: BUN/Creatinine Ratio 41 (6-26); Blood Urea Nitrogen 32 mg/dL (8-23); Calcium 8.3 mg/dL (8.6-10.3); Carbon Dioxide 23 mEq/L (23-29); Chloride 106 mEq/L (98-107); Glucose 168 mg/dL (70-105); Osmolality,Calculated 293 (280-300); Potassium 4.4 mEq/L (3.5-5.1); Sodium 136 mEq/L (136-145); eGFR For African Americans > 60 (> 60); eGFR For Non-African Americans > 60 (> 60)
[2020-08-31] MEDS ORDERED: Bisacodyl 10 MG RECTAL SUPPOSITORY RC ONE ×2 (08:49→09:44)
[2020-08-31] MEDS: allopurinoL 100 MG TABLET PO SCH (09:36)
[2020-08-31] MEDS: Insulin LISPRO 300 UNITS/3 ML VIAL SQ SCH ×2 (09:36→12:33)
[2020-08-31] MEDS: (Linaclotide [Linzess] 145 MCG) PO SCH (09:37)
[2020-08-31] MEDS: Cyanocobalamin (B-12) 1,000 MCG TABLET PO SCH (09:37)
[2020-08-31] MEDS: Gabapentin 100 MG CAPSULE PO SCH (09:37)
[2020-08-31] MEDS: Cholecalciferol (D-3) 1,000 UNIT (25MCG) TABLET PO SCH (09:37)
[2020-08-31] MEDS: amLODIPine 5 MG TABLET PO SCH (09:37)
[2020-08-31 11:35] VITALS: BP 127/61
[2020-08-31] MEDS: Magnesium Oxide 400 MG TABLET PO SCH (12:34)
[2020-08-31 13:39] LABS: Adenovirus Not Detected (Not Detect); Coronavirus 229E Not Detected (Not Detect); Coronavirus HKU1 Not Detected (Not Detect); Coronavirus NL63 Not Detected (Not Detect); Coronavirus OC43 Not Detected (Not Detect); Human Metapneumovirus Not Detected (Not Detect); Human Rhinovirus/Enterovirus Not Detected (Not Detect); Influenza A Subtype 2009 H1 Not Detected (Not Detect); SARS-CoV-2 Not Detected (Not Detect)
[2020-08-31 13:40] LABS: Bordetella Pertussis Not Detected (Not Detect); Chlamydophila pneumoniae Not Detected (Not Detect); Influenza B Not Detected (Not Detect); Mycoplasma pneumoniae Not Detected (Not Detect); Parainfluenza Virus 1 Not Detected (Not Detect); Parainfluenza Virus 2 Not Detected (Not Detect); Parainfluenza Virus 3 Not Detected (Not Detect); Parainfluenza Virus 4 Not Detected (Not Detect); Respiratory Syncytial Virus Not Detected (Not Detect)
== END 2020-08-31 16:29 | disposition other institution (70) | DRG 556 ==
LOC: 3ANU → SUATTDRO 14:39
PROVIDERS: ADMIT Internal Medicine; ATTEND Internal Medicine

== ENCOUNTER 2020-11-23 05:48 | Inpatient (IN) ==
[2020-11-23 07:01] LABS: Basophils % 0.2 %; Eosinophils % 0.4 %; Hematocrit 32.9 % (35.3-44.9); Hemoglobin 10.1 g/dL (11.5-15.4); Immature Granulocytes % 0.7 % (0-4); Lymphocytes # 2.1 K/mcL (0.6-4.6); Lymphocytes % 25.6 %; Mean Corpuscular HGB Conc 30.7 g/dL (31.6-35.5); Mean Corpuscular Hemoglobin 28.3 pg (28.0-33.3); Mean Corpuscular Volume 92.2 fL (83.0-100.0); Mean Platelet Volume 9.9 fL (9.4-12.4); Monocytes # 0.8 K/mcL (0.0-1.3); Monocytes % 10.2 %; Neutrophils # 5.1 K/mcL (1.6-8.9); Platelet Count 153 K/mcL (140-400); Red Blood Count 3.57 M/mcL (3.82-4.97); Red Cell Distribution Width 17.8 % (11.5-14.5); Segmented Neutrophils % 62.9 %; White Blood Count 8.1 K/mcL (4.3-11.1)
[2020-11-23 07:24] LABS: Alanine Aminotransferase 13 Units/L (7-52); Albumin 3.4 g/dL (3.5-5.7); Albumin/Globulin Ratio 1.3 (1.1-2.2); Alkaline Phosphatase 47 Units/L (34-104); Aspartate Amino Transferase 18 Units/L (13-39); BUN/Creatinine Ratio 22 (6-26); Bilirubin,Direct 0.4 mg/dL (0.0-0.2); Bilirubin,Indirect 0.8 mg/dL (0.0-1.0); Bilirubin,Total 1.2 mg/dL (0.3-1.0); Blood Urea Nitrogen 24 mg/dL (8-23); Calcium 8.5 mg/dL (8.6-10.3); Carbon Dioxide 30 mEq/L (23-29); Chloride 101 mEq/L (98-107); Globulin 2.6 g/dL (2.4-3.5); Glucose 132 mg/dL (70-105); Magnesium 1.4 mg/dL (1.6-2.6); Osmolality,Calculated 292 (280-300); Potassium 3.6 mEq/L (3.5-5.1); Sodium 138 mEq/L (136-145); Troponin I < 0.03 ng/mL (< 0.04); eGFR For African Americans 57 (> 60); eGFR For Non-African Americans 47 (> 60)
[2020-11-23 07:27] LABS: INR 1.2; Prothrombin Time 13.4 Seconds (9.4-12.1)
[2020-11-23 07:30] LABS: Activated Partial Thrombo Time 25.6 Seconds (26.0-36.0)
[2020-11-23] MEDS ORDERED: cefTRIAXone 1,000 MG in 0.9 % Sodium Chloride Mini Bag 100 ML IVPB ONE (08:10)
[2020-11-23] MEDS ORDERED: Azithromycin 500 MG in 0.9 % Sodium Chloride 250 ML IVPB ONE (08:12)
[2020-11-23] MEDS ORDERED: CefTRIAXone 1,000 MG VIAL ONE (09:09)
[2020-11-23] MEDS ORDERED: 0.9 % Sodium Chloride 250 ML ONE (09:09)
[2020-11-23] MEDS ORDERED: Ondansetron 4 MG/2 ML VIAL IVP PRN (09:12)
[2020-11-23] MEDS ORDERED: Acetaminophen 325 MG TABLET PO PRN (09:12)
[2020-11-23] MEDS ORDERED: Naloxone 0.4 MG/ML INJ IVP PRN (09:12)
[2020-11-23] MEDS ORDERED: Dextrose Gel 15 GM/37.5 ML TUBE PO PRN ×2 (10:18)
[2020-11-23] MEDS ORDERED: D5% in Water 1,000 ML IVC PRN (10:18)
[2020-11-23] MEDS ORDERED: *HR* Dextrose 50 % in Water (Vial) 50 ML VIAL IVP PRN (10:18)
[2020-11-23 10:48] LABS: Amorphous Sediment,Urine Few per hpf (None-Few); Bacteria,Urine Many per hpf (None-Few); Bilirubin,Urine Negative (Negative); Blood,Urine Negative (Negative); Clarity,Urine Turbid (Clear); Color,Urine Yellow (Yellow); Glucose,Urine (UA) Normal (Normal); Ketones,Urine Negative (Negative); Leukocyte Esterase,Urine Large (Negative); Mucus,Urine Few per lpf (None-Few); Nitrite,Urine Negative (Negative); Protein,Urine 50 mg/dL (Neg-Trace); RBC,Urine 0-3 per hpf (0-3); Specific Gravity,Urine 1.023 (1.010-1.025); Squamous Epithelial Cell,Urine Few per hpf (None-Few); WBC,Urine 50-100 per hpf (0-3)
[2020-11-23] MEDS: Insulin LISPRO 300 UNITS/3 ML VIAL SUBQ SCH ×2 (11:26→16:05)
[2020-11-23] MEDS: Gabapentin 100 MG CAPSULE PO SCH (20:13)
[2020-11-23] MEDS: *HR* OxyCODONE Immed Rel 5 MG TABLET PO PRN (20:18)
[2020-11-24 06:11] LABS: Basophils % 0.3 %; Eosinophils # 0.1 K/mcL (0.0-0.6); Hematocrit 30.5 % (35.3-44.9); Hemoglobin 9.5 g/dL (11.5-15.4); Immature Granulocytes % 0.8 % (0-4); Lymphocytes % 28.8 %; Mean Corpuscular HGB Conc 31.1 g/dL (31.6-35.5); Mean Corpuscular Hemoglobin 28.5 pg (28.0-33.3); Mean Corpuscular Volume 91.6 fL (83.0-100.0); Mean Platelet Volume 10.8 fL (9.4-12.4); Monocytes # 0.7 K/mcL (0.0-1.3); Monocytes % 10.3 %; Neutrophils # 4.2 K/mcL (1.6-8.9); Platelet Count 176 K/mcL (140-400); Red Blood Count 3.33 M/mcL (3.82-4.97); Red Cell Distribution Width 17.5 % (11.5-14.5); Segmented Neutrophils % 58.8 %; White Blood Count 7.1 K/mcL (4.3-11.1)
[2020-11-24 06:45] LABS: BUN/Creatinine Ratio 25 (6-26); Blood Urea Nitrogen 20 mg/dL (8-23); Calcium 8.7 mg/dL (8.6-10.3); Carbon Dioxide 29 mEq/L (23-29); Chloride 103 mEq/L (98-107); Glucose 116 mg/dL (70-105); Osmolality,Calculated 294 (280-300); Potassium 3.8 mEq/L (3.5-5.1); Sodium 140 mEq/L (136-145); eGFR For African Americans > 60 (> 60); eGFR For Non-African Americans > 60 (> 60)
[2020-11-24] MEDS: Insulin LISPRO 300 UNITS/3 ML VIAL SUBQ SCH ×3 (08:28→16:31)
[2020-11-24] MEDS: Azithromycin 250 MG TABLET PO SCH (10:38)
[2020-11-24] MEDS: allopurinoL 100 MG TABLET PO SCH (10:38)
[2020-11-24] MEDS: Gabapentin 100 MG CAPSULE PO SCH ×2 (10:38→19:59)
[2020-11-24] MEDS: Cholecalciferol (D-3) 1,000 UNIT (25MCG) TABLET PO SCH (10:38)
[2020-11-24] MEDS: Ascorbic Acid 500 MG TABLET PO SCH (10:38)
[2020-11-24] MEDS: cefTRIAXone 1,000 MG in Water for inj. (sterile) 10 ML IVP SCH (10:39)
[2020-11-24] MEDS: amLODIPine 5 MG TABLET PO SCH (10:39)
[2020-11-24] MEDS: *HR* OxyCODONE Immed Rel 5 MG TABLET PO PRN (19:58)
[2020-11-25] MEDS: *HR* OxyCODONE Immed Rel 5 MG TABLET PO PRN ×2 (04:36→15:40)
[2020-11-25] MEDS: Insulin LISPRO 300 UNITS/3 ML VIAL SUBQ SCH ×3 (07:20→15:42)
[2020-11-25] MEDS: Cholecalciferol (D-3) 1,000 UNIT (25MCG) TABLET PO SCH (07:28)
[2020-11-25] MEDS: Gabapentin 100 MG CAPSULE PO SCH ×2 (07:28→20:03)
[2020-11-25] MEDS: Ascorbic Acid 500 MG TABLET PO SCH (07:28)
[2020-11-25] MEDS: cefTRIAXone 1,000 MG in Water for inj. (sterile) 10 ML IVP SCH (07:28)
[2020-11-25] MEDS: allopurinoL 100 MG TABLET PO SCH (07:28)
[2020-11-25] MEDS: Azithromycin 250 MG TABLET PO SCH (07:28)
[2020-11-25] MEDS: amLODIPine 5 MG TABLET PO SCH (07:29)
[2020-11-25] MEDS: *HR* HYDROcodone/Acet 5/325 mg TABLET PO PRN (08:03)
[2020-11-25] MEDS ORDERED: cefTRIAXone 1,000 MG in Water for inj. (sterile) 10 ML IVP ONE (10:00)
[2020-11-25] MEDS: Indomethacin 25 MG CAPSULE PO SCH (17:02)
[2020-11-26] MEDS: Insulin LISPRO 300 UNITS/3 ML VIAL SUBQ SCH ×2 (07:54→11:56)
[2020-11-26] MEDS: *HR* HYDROcodone/Acet 5/325 mg TABLET PO PRN (08:02)
[2020-11-26] MEDS: Ascorbic Acid 500 MG TABLET PO SCH (08:02)
[2020-11-26] MEDS: Cholecalciferol (D-3) 1,000 UNIT (25MCG) TABLET PO SCH (08:02)
[2020-11-26] MEDS: Gabapentin 100 MG CAPSULE PO SCH (08:02)
[2020-11-26] MEDS: amLODIPine 5 MG TABLET PO SCH (08:03)
[2020-11-26] MEDS: Indomethacin 25 MG CAPSULE PO SCH ×2 (08:03→11:55)
[2020-11-26] MEDS: Azithromycin 250 MG TABLET PO SCH (08:03)
[2020-11-26] MEDS: allopurinoL 100 MG TABLET PO SCH (08:03)
[2020-11-26] MEDS: cefTRIAXone 1,000 MG in Water for inj. (sterile) 10 ML IVP SCH (08:07)
[2020-11-26 11:41] VITALS: BP 168/68
== END 2020-11-26 15:08 | disposition home or self-care (01) | DRG 193 ==
LOC: EMEROOARM 05:48 → 2ANU 05:48 → SUATTDRO 09:10 → 2ANU 10:40
PROVIDERS: ADMIT Internal Medicine; ATTEND Internal Medicine

== ENCOUNTER 2021-03-14 13:16 | Inpatient (IN) ==
[2021-03-14 14:50] LABS: Basophils % 0.1 %; Eosinophils % 0.1 %; Hematocrit 30.7 % (35.3-44.9); Hemoglobin 9.6 g/dL (11.5-15.4); Immature Granulocytes % 1.1 % (0-4); Lymphocytes # 0.4 K/mcL (0.6-4.6); Lymphocytes % 4.1 %; Mean Corpuscular HGB Conc 31.3 g/dL (31.6-35.5); Mean Corpuscular Hemoglobin 30.4 pg (28.0-33.3); Mean Corpuscular Volume 97.2 fL (83.0-100.0); Mean Platelet Volume 10.7 fL (9.4-12.4); Monocytes # 0.9 K/mcL (0.0-1.3); Monocytes % 8.5 %; Neutrophils # 8.7 K/mcL (1.6-8.9); Platelet Count 138 K/mcL (140-400); Red Blood Count 3.16 M/mcL (3.82-4.97); Red Cell Distribution Width 15.7 % (11.5-14.5); Segmented Neutrophils % 86.1 %
[2021-03-14 14:58] LABS: INR 1.2; Prothrombin Time 14.2 Seconds (9.4-12.1)
[2021-03-14] MEDS ORDERED: Morphine Sulfate 2 MG/ML SYRINGE IVP ONE (15:20)
[2021-03-14] MEDS ORDERED: Ondansetron 4 MG/2 ML VIAL IVP ONE (15:20)
[2021-03-14 15:23] LABS: BUN/Creatinine Ratio 22 (6-26); Blood Urea Nitrogen 19 mg/dL (8-23); Calcium 9.4 mg/dL (8.6-10.3); Carbon Dioxide 30 mEq/L (23-29); Chloride 104 mEq/L (98-107); Glucose 170 mg/dL (70-105); Osmolality,Calculated 304 (280-300); Potassium 3.5 mEq/L (3.5-5.1); Sodium 144 mEq/L (136-145); Troponin I 0.11 ng/mL (< 0.04); eGFR For African Americans > 60 (> 60); eGFR For Non-African Americans > 60 (> 60)
[2021-03-14] MEDS ORDERED: Furosemide 20 MG/2 ML VIAL IVP ONE (15:52)
[2021-03-14] MEDS ORDERED: Naloxone 0.4 MG/ML INJ IVP PRN (16:35)
[2021-03-14] MEDS ORDERED: *HR* OxyCODONE Immed Rel 5 MG TABLET PO PRN (16:40)
[2021-03-14] MEDS ORDERED: *HR* Labetalol 20 MG/4 ML SYRINGE IVP PRN (16:46)
[2021-03-14] MEDS ORDERED: *HR* Dextrose 50 % in Water (Vial) 50 ML VIAL IVP PRN (16:48)
[2021-03-14] MEDS ORDERED: D5% in Water 1,000 ML IVC PRN (16:48)
[2021-03-14] MEDS ORDERED: Dextrose Gel 15 GM/37.5 ML TUBE PO PRN ×2 (16:48)
[2021-03-14] MEDS ORDERED: *HR* FentaNYL PATCH 12 MCG PATCH TD SCH (19:30)
[2021-03-14] MEDS: Insulin LISPRO 300 UNITS/3 ML VIAL SUBQ SCH (21:17)
[2021-03-14] MEDS: Famotidine 20 MG TABLET PO SCH (21:22)
[2021-03-14] MEDS: Gabapentin 100 MG CAPSULE PO SCH (21:23)
[2021-03-15 04:34] LABS: Eosinophils % 1.1 %; Red Cell Distribution Width 15.6 % (11.5-14.5)
[2021-03-15 04:36] LABS: Basophils % 0.3 %; Eosinophils # 0.1 K/mcL (0.0-0.6); Hematocrit 30.8 % (35.3-44.9); Hemoglobin 9.5 g/dL (11.5-15.4); Immature Granulocytes % 0.9 % (0-4); Lymphocytes # 1.8 K/mcL (0.6-4.6); Lymphocytes % 23.9 %; Mean Corpuscular HGB Conc 30.8 g/dL (31.6-35.5); Mean Corpuscular Hemoglobin 30.4 pg (28.0-33.3); Mean Corpuscular Volume 98.7 fL (83.0-100.0); Mean Platelet Volume 11.3 fL (9.4-12.4); Monocytes # 0.6 K/mcL (0.0-1.3); Monocytes % 7.7 %; Platelet Count 146 K/mcL (140-400); Red Blood Count 3.12 M/mcL (3.82-4.97); Segmented Neutrophils % 66.1 %; White Blood Count 7.5 K/mcL (4.3-11.1)
[2021-03-15 04:51] LABS: BUN/Creatinine Ratio 27 (6-26); Blood Urea Nitrogen 25 mg/dL (8-23); Calcium 8.6 mg/dL (8.6-10.3); Carbon Dioxide 31 mEq/L (23-29); Chloride 106 mEq/L (98-107); Glucose 101 mg/dL (70-105); Osmolality,Calculated 303 (280-300); Potassium 3.8 mEq/L (3.5-5.1); Sodium 144 mEq/L (136-145); eGFR For African Americans > 60 (> 60); eGFR For Non-African Americans 57 (> 60)
[2021-03-15 04:58] LABS: Troponin I 0.13 ng/mL (< 0.04)
[2021-03-15] MEDS ORDERED: Perflutren Lipid Microsphere 1.3 ML in 0.9 % Sodium Chloride 8.7 ML IVP PRN (07:46)
[2021-03-15] MEDS: Insulin LISPRO 300 UNITS/3 ML VIAL SUBQ SCH ×4 (08:46→23:10)
[2021-03-15] MEDS: Multivit/Ca/Min/Fe/FA 1 TAB TABLET PO SCH (08:55)
[2021-03-15] MEDS: Furosemide 20 MG/2 ML VIAL IVP SCH ×2 (08:55→16:56)
[2021-03-15] MEDS: amLODIPine 5 MG TABLET PO SCH (08:55)
[2021-03-15] MEDS: Gabapentin 100 MG CAPSULE PO SCH ×2 (08:55→23:09)
[2021-03-15] MEDS: Cholecalciferol (D-3) 1,000 UNIT (25MCG) TABLET PO SCH (08:55)
[2021-03-15] MEDS: Aspirin Enteric Coated 81 MG Tablet PO SCH (08:55)
[2021-03-15] MEDS: Ascorbic Acid 500 MG TABLET PO SCH (08:55)
[2021-03-15] MEDS: allopurinoL 100 MG TABLET PO SCH (08:56)
[2021-03-15] MEDS ORDERED: Isovue-370 500 ML BOTTLE IVP ONE (11:22)
[2021-03-15] MEDS: *HR* OxyCODONE Immed Rel 5 MG TABLET PO PRN (13:38)
[2021-03-15] MEDS: *HR* FentaNYL PATCH 12 MCG PATCH TD SCH (16:56)
[2021-03-15] MEDS: *HR* HYDROmorphone (PF) 1 MG/ML SYRINGE IVP PRN (17:03)
[2021-03-15] MEDS: Famotidine 20 MG TABLET PO SCH (23:09)
[2021-03-16 01:55] LABS: Basophils % 0.3 %; Eosinophils # 0.1 K/mcL (0.0-0.6); Eosinophils % 1.3 %; Hematocrit 28.8 % (35.3-44.9); Immature Granulocytes % 0.8 % (0-4); Lymphocytes # 1.6 K/mcL (0.6-4.6); Lymphocytes % 20.9 %; Mean Corpuscular HGB Conc 31.3 g/dL (31.6-35.5); Mean Corpuscular Hemoglobin 30.2 pg (28.0-33.3); Mean Corpuscular Volume 96.6 fL (83.0-100.0); Mean Platelet Volume 11.1 fL (9.4-12.4); Monocytes # 0.5 K/mcL (0.0-1.3); Monocytes % 6.8 %; Neutrophils # 5.4 K/mcL (1.6-8.9); Platelet Count 146 K/mcL (140-400); Red Blood Count 2.98 M/mcL (3.82-4.97); Red Cell Distribution Width 15.3 % (11.5-14.5); Segmented Neutrophils % 69.9 %; White Blood Count 7.8 K/mcL (4.3-11.1)
[2021-03-16 02:11] LABS: BUN/Creatinine Ratio 28 (6-26); Blood Urea Nitrogen 29 mg/dL (8-23); Calcium 8.9 mg/dL (8.6-10.3); Carbon Dioxide 35 mEq/L (23-29); Chloride 100 mEq/L (98-107); Glucose 126 mg/dL (70-105); Osmolality,Calculated 301 (280-300); Potassium 3.6 mEq/L (3.5-5.1); Sodium 142 mEq/L (136-145); eGFR For African Americans > 60 (> 60); eGFR For Non-African Americans 50 (> 60)
[2021-03-16] MEDS: Insulin LISPRO 300 UNITS/3 ML VIAL SUBQ SCH ×4 (08:08→20:12)
[2021-03-16] MEDS: amLODIPine 5 MG TABLET PO SCH (08:21)
[2021-03-16] MEDS: Cholecalciferol (D-3) 1,000 UNIT (25MCG) TABLET PO SCH (08:21)
[2021-03-16] MEDS: Ascorbic Acid 500 MG TABLET PO SCH (08:21)
[2021-03-16] MEDS: Gabapentin 100 MG CAPSULE PO SCH ×2 (08:21→20:14)
[2021-03-16] MEDS: Multivit/Ca/Min/Fe/FA 1 TAB TABLET PO SCH (08:22)
[2021-03-16] MEDS: Furosemide 20 MG/2 ML VIAL IVP SCH ×2 (08:22→18:14)
[2021-03-16] MEDS: allopurinoL 100 MG TABLET PO SCH (08:22)
[2021-03-16] MEDS: Aspirin Enteric Coated 81 MG Tablet PO SCH (08:22)
[2021-03-16] MEDS: *HR* HYDROmorphone (PF) 1 MG/ML SYRINGE IVP PRN ×2 (13:54→22:45)
[2021-03-16] MEDS: *HR* Heparin 5,000 UNIT/ML VIAL SQ SCH (18:13)
[2021-03-16] MEDS: Famotidine 20 MG TABLET PO SCH (20:14)
[2021-03-16] MEDS: *HR* OxyCODONE Immed Rel 5 MG TABLET PO PRN (20:17)
[2021-03-17] MEDS: *HR* Heparin 5,000 UNIT/ML VIAL SQ SCH ×2 (05:53→16:24)
[2021-03-17] MEDS ORDERED: Furosemide 20 MG TABLET PO PRN (07:28)
[2021-03-17] MEDS: Gabapentin 100 MG CAPSULE PO SCH ×2 (08:12→21:01)
[2021-03-17] MEDS: Aspirin Enteric Coated 81 MG Tablet PO SCH (08:12)
[2021-03-17] MEDS: allopurinoL 100 MG TABLET PO SCH (08:13)
[2021-03-17] MEDS: Cholecalciferol (D-3) 1,000 UNIT (25MCG) TABLET PO SCH (08:13)
[2021-03-17] MEDS: amLODIPine 5 MG TABLET PO SCH (08:13)
[2021-03-17] MEDS: Multivit/Ca/Min/Fe/FA 1 TAB TABLET PO SCH (08:13)
[2021-03-17] MEDS: Insulin LISPRO 300 UNITS/3 ML VIAL SUBQ SCH ×4 (08:13→20:52)
[2021-03-17] MEDS: Ascorbic Acid 500 MG TABLET PO SCH (08:13)
[2021-03-17] MEDS: *HR* HYDROmorphone (PF) 1 MG/ML SYRINGE IVP PRN ×2 (08:14→22:10)
[2021-03-17] MEDS: Furosemide 20 MG TABLET PO SCH (12:35)
[2021-03-17] MEDS: *HR* OxyCODONE Immed Rel 5 MG TABLET PO PRN (16:18)
[2021-03-17] MEDS ORDERED: Methyl Salicylate/Menthol 85 APPL/85 GM TUBE TP PRN (17:11)
[2021-03-17] MEDS: Famotidine 20 MG TABLET PO SCH (21:01)
[2021-03-18 05:02] LABS: Basophils % 0.3 %; Eosinophils # 0.1 K/mcL (0.0-0.6); Eosinophils % 0.8 %; Hematocrit 31.7 % (35.3-44.9); Immature Granulocytes % 0.8 % (0-4); Lymphocytes # 1.8 K/mcL (0.6-4.6); Lymphocytes % 23.6 %; Mean Corpuscular HGB Conc 31.5 g/dL (31.6-35.5); Mean Corpuscular Hemoglobin 30.3 pg (28.0-33.3); Mean Corpuscular Volume 96.1 fL (83.0-100.0); Mean Platelet Volume 10.6 fL (9.4-12.4); Monocytes # 0.7 K/mcL (0.0-1.3); Monocytes % 8.5 %; Neutrophils # 5.1 K/mcL (1.6-8.9); Platelet Count 176 K/mcL (140-400); White Blood Count 7.7 K/mcL (4.3-11.1)
[2021-03-18 05:23] LABS: BUN/Creatinine Ratio 34 (6-26); Blood Urea Nitrogen 33 mg/dL (8-23); Calcium 9.3 mg/dL (8.6-10.3); Carbon Dioxide 38 mEq/L (23-29); Chloride 98 mEq/L (98-107); Glucose 144 mg/dL (70-105); Osmolality,Calculated 304 (280-300); Potassium 3.7 mEq/L (3.5-5.1); Sodium 142 mEq/L (136-145); eGFR For African Americans > 60 (> 60); eGFR For Non-African Americans 54 (> 60)
[2021-03-18] MEDS: *HR* Heparin 5,000 UNIT/ML VIAL SQ SCH ×2 (05:52→17:01)
[2021-03-18] MEDS: Ascorbic Acid 500 MG TABLET PO SCH (07:49)
[2021-03-18] MEDS: Gabapentin 100 MG CAPSULE PO SCH ×2 (07:49→20:16)
[2021-03-18] MEDS: Multivit/Ca/Min/Fe/FA 1 TAB TABLET PO SCH (07:49)
[2021-03-18] MEDS: allopurinoL 100 MG TABLET PO SCH (07:49)
[2021-03-18] MEDS: Aspirin Enteric Coated 81 MG Tablet PO SCH (07:49)
[2021-03-18] MEDS: Cholecalciferol (D-3) 1,000 UNIT (25MCG) TABLET PO SCH (07:49)
[2021-03-18] MEDS: amLODIPine 5 MG TABLET PO SCH (07:50)
[2021-03-18] MEDS: Furosemide 20 MG TABLET PO SCH (07:50)
[2021-03-18] MEDS: Insulin LISPRO 300 UNITS/3 ML VIAL SUBQ SCH ×4 (08:29→20:30)
[2021-03-18] MEDS ORDERED: polyethylene glycoL 3350 17 GM POWD.PACK PO PRN (11:33)
[2021-03-18] MEDS ORDERED: Ondansetron 4 MG/2 ML VIAL IVP PRN ×2 (11:53→17:12)
[2021-03-18] MEDS: *HR* FentaNYL PATCH 12 MCG PATCH TD SCH (15:59)
[2021-03-18] MEDS: *HR* OxyCODONE Immed Rel 5 MG TABLET PO PRN (17:06)
[2021-03-18] MEDS: Famotidine 20 MG TABLET PO SCH (20:16)
[2021-03-19] MEDS: *HR* HYDROmorphone (PF) 1 MG/ML SYRINGE IVP PRN (01:30)
[2021-03-19] MEDS: *HR* Heparin 5,000 UNIT/ML VIAL SQ SCH (05:10)
[2021-03-19 05:52] LABS: BUN/Creatinine Ratio 37 (6-26); Blood Urea Nitrogen 31 mg/dL (8-23); Calcium 9.4 mg/dL (8.6-10.3); Carbon Dioxide 37 mEq/L (23-29); Chloride 100 mEq/L (98-107); Glucose 118 mg/dL (70-105); Osmolality,Calculated 306 (280-300); Potassium 3.8 mEq/L (3.5-5.1); Sodium 144 mEq/L (136-145); eGFR For African Americans > 60 (> 60); eGFR For Non-African Americans > 60 (> 60)
[2021-03-19 06:24] LABS: Basophils % 0.2 %; Eosinophils # 0.1 K/mcL (0.0-0.6); Eosinophils % 1.3 %; Hemoglobin 10.2 g/dL (11.5-15.4); Immature Granulocytes % 1.1 % (0-4); Lymphocytes # 1.8 K/mcL (0.6-4.6); Lymphocytes % 21.6 %; Mean Corpuscular HGB Conc 31.9 g/dL (31.6-35.5); Mean Corpuscular Hemoglobin 29.8 pg (28.0-33.3); Mean Corpuscular Volume 93.6 fL (83.0-100.0); Mean Platelet Volume 10.9 fL (9.4-12.4); Monocytes # 0.7 K/mcL (0.0-1.3); Monocytes % 8.8 %; Neutrophils # 5.7 K/mcL (1.6-8.9); Platelet Count 161 K/mcL (140-400); Red Blood Count 3.42 M/mcL (3.82-4.97); Red Cell Distribution Width 14.8 % (11.5-14.5); White Blood Count 8.4 K/mcL (4.3-11.1)
[2021-03-19] MEDS: Insulin LISPRO 300 UNITS/3 ML VIAL SUBQ SCH ×2 (07:50→12:07)
[2021-03-19] MEDS: Aspirin Enteric Coated 81 MG Tablet PO SCH (07:51)
[2021-03-19] MEDS: allopurinoL 100 MG TABLET PO SCH (07:52)
[2021-03-19] MEDS: Ascorbic Acid 500 MG TABLET PO SCH (07:52)
[2021-03-19] MEDS: Multivit/Ca/Min/Fe/FA 1 TAB TABLET PO SCH (07:52)
[2021-03-19] MEDS: Gabapentin 100 MG CAPSULE PO SCH (07:52)
[2021-03-19] MEDS: amLODIPine 5 MG TABLET PO SCH (07:52)
[2021-03-19] MEDS: Furosemide 20 MG TABLET PO SCH (07:52)
[2021-03-19] MEDS: Cholecalciferol (D-3) 1,000 UNIT (25MCG) TABLET PO SCH (07:52)
[2021-03-19] MEDS: *HR* OxyCODONE Immed Rel 5 MG TABLET PO PRN (08:02)
[2021-03-19 11:45] LABS: Adenovirus Not Detected (Not Detect); Bordetella Pertussis Not Detected (Not Detect); Chlamydophila pneumoniae Not Detected (Not Detect); Coronavirus 229E Not Detected (Not Detect); Coronavirus HKU1 Not Detected (Not Detect); Coronavirus NL63 Not Detected (Not Detect); Coronavirus OC43 Not Detected (Not Detect); Human Metapneumovirus Not Detected (Not Detect); Human Rhinovirus/Enterovirus Not Detected (Not Detect); Influenza A Subtype 2009 H1 Not Detected (Not Detect); Influenza B Not Detected (Not Detect); Mycoplasma pneumoniae Not Detected (Not Detect); Parainfluenza Virus 1 Not Detected (Not Detect); Parainfluenza Virus 2 Not Detected (Not Detect); Parainfluenza Virus 3 Not Detected (Not Detect); Parainfluenza Virus 4 Not Detected (Not Detect); Respiratory Syncytial Virus Not Detected (Not Detect); SARS-CoV-2 Not Detected (Not Detect)
[2021-03-19 12:49] VITALS: BP 170/67
== END 2021-03-19 15:18 | DRG 280 ==
LOC: EMEROOARM 13:16 → 3ANU 13:16 → SUATTDRO 18:08 → 3ANU 19:30
PROVIDERS: ADMIT Internal Medicine; ATTEND Internal Medicine

== ENCOUNTER 2021-05-13 22:37 | Inpatient (IN) ==
[2021-05-14 01:02] LABS: Basophils % 0.5 %; Eosinophils # 0.1 K/mcL (0.0-0.6); Eosinophils % 0.9 %; Hematocrit 26.2 % (35.3-44.9); Hemoglobin 7.8 g/dL (11.5-15.4); Immature Granulocytes % 1.1 % (0-4); Lymphocytes # 2.1 K/mcL (0.6-4.6); Lymphocytes % 26.7 %; Mean Corpuscular HGB Conc 29.8 g/dL (31.6-35.5); Mean Corpuscular Hemoglobin 28.8 pg (28.0-33.3); Mean Corpuscular Volume 96.7 fL (83.0-100.0); Mean Platelet Volume 10.6 fL (9.4-12.4); Monocytes # 0.7 K/mcL (0.0-1.3); Monocytes % 8.5 %; Neutrophils # 4.9 K/mcL (1.6-8.9); Platelet Count 169 K/mcL (140-400); Red Blood Count 2.71 M/mcL (3.82-4.97); Red Cell Distribution Width 17.2 % (11.5-14.5); Segmented Neutrophils % 62.3 %; White Blood Count 7.9 K/mcL (4.3-11.1)
[2021-05-14 01:08] LABS: INR 1.1; Prothrombin Time 12.8 Seconds (9.4-12.1)
[2021-05-14 01:18] LABS: BUN/Creatinine Ratio 15 (6-26); Blood Urea Nitrogen 15 mg/dL (8-23); Calcium 8.7 mg/dL (8.6-10.3); Carbon Dioxide 29 mEq/L (23-29); Chloride 103 mEq/L (98-107); Glucose 144 mg/dL (70-105); Osmolality,Calculated 295 (280-300); Potassium 4.2 mEq/L (3.5-5.1); Sodium 141 mEq/L (136-145); eGFR For African Americans > 60 (> 60); eGFR For Non-African Americans 54 (> 60)
[2021-05-14] MEDS ORDERED: Pantoprazole 80 MG in 0.9 % Sodium Chloride 50 ML IVPB ONE (01:52)
[2021-05-14] MEDS ORDERED: Pantoprazole 40 MG VIAL IVP ONE (01:55)
[2021-05-14] MEDS ORDERED: Naloxone 0.4 MG/ML INJ IVP PRN (03:16)
[2021-05-14] MEDS ORDERED: Ondansetron 4 MG/2 ML VIAL IVP PRN (03:16)
[2021-05-14] MEDS ORDERED: *HR* Promethazine 25 MG/ML VIAL IM PRN (03:16)
[2021-05-14 08:29] LABS: Basophils % 0.3 %; Eosinophils # 0.1 K/mcL (0.0-0.6); Eosinophils % 1.4 %; Hematocrit 25.4 % (35.3-44.9); Hemoglobin 8.1 g/dL (11.5-15.4); Immature Granulocytes % 0.9 % (0-4); Lymphocytes # 1.9 K/mcL (0.6-4.6); Lymphocytes % 32.5 %; Mean Corpuscular HGB Conc 31.9 g/dL (31.6-35.5); Mean Corpuscular Hemoglobin 30.1 pg (28.0-33.3); Mean Corpuscular Volume 94.4 fL (83.0-100.0); Mean Platelet Volume 10.8 fL (9.4-12.4); Monocytes # 0.6 K/mcL (0.0-1.3); Monocytes % 10.4 %; Neutrophils # 3.2 K/mcL (1.6-8.9); Platelet Count 172 K/mcL (140-400); Red Blood Count 2.69 M/mcL (3.82-4.97); Segmented Neutrophils % 54.5 %; White Blood Count 5.8 K/mcL (4.3-11.1)
[2021-05-14] MEDS: Pantoprazole 40 MG VIAL IVP SCH ×2 (08:59→17:31)
[2021-05-14] MEDS: 0.9 % Sodium Chloride 1,000 ML IVC SCH ×2 (08:59→22:36)
[2021-05-14 11:02] LABS: Hematocrit 26.5 % (35.3-44.9); Hemoglobin 8.4 g/dL (11.5-15.4)
[2021-05-14] MEDS ORDERED: *HR* FentaNYL PATCH 12 MCG PATCH TD SCH (16:45)
[2021-05-14] MEDS ORDERED: D5% in Water 1,000 ML IVC PRN (16:53)
[2021-05-14] MEDS ORDERED: *HR* Metoprolol 5 MG/5 ML VIAL IVP ONE (16:53)
[2021-05-14] MEDS ORDERED: *HR* Dextrose 50 % in Water (Vial) 50 ML VIAL IVP PRN (16:53)
[2021-05-14] MEDS ORDERED: Dextrose Gel 15 GM/37.5 ML TUBE PO PRN ×2 (16:53)
[2021-05-14 23:37] LABS: Adenovirus F 40/41 PCR Not detected (Not detect); Astrovirus PCR Not detected (Not detect); C.difficile Toxin A/B Gene PCR Not detected (Not detect); Campylobacter by PCR Not detected (Not detect); Cryptosporidium by PCR Not detected (Not detect); Cyclospora cayetanensis PCR Not detected (Not detect); E. coli O157 by PCR Not detected (Not detect); Entamoeba histolytica PCR Not detected (Not detect); Enteroaggregative E.coli(EAEC) Not detected (Not detect); Enteropathogenic E.coli(EPEC) Not detected (Not detect); Enterotoxigenic E.coli (ETEC) Not detected (Not detect); Giardia lamblia PCR Not detected (Not detect); Norovirus GI/GII PCR Not detected (Not detect); Plesiomonas shigelloides PCR Not detected (Not detect); Rotavirus A PCR Not detected (Not detect); Salmonella PCR Not detected (Not detect); Sapovirus PCR Not detected (Not detect); Shig/EnteroinvasiveE coli EIEC Not detected (Not detect); Shigalike tox-prod E coli STEC Not detected (Not detect); Vibrio PCR Not detected (Not detect); Vibrio cholerae PCR Not detected (Not detect); Yersinia enterocolitica PCR Not detected (Not detect)
[2021-05-15 01:54] LABS: Basophils % 0.3 %; Eosinophils # 0.1 K/mcL (0.0-0.6); Hematocrit 25.9 % (35.3-44.9); Hemoglobin 8.2 g/dL (11.5-15.4); Immature Granulocytes % 0.7 % (0-4); Lymphocytes # 1.7 K/mcL (0.6-4.6); Lymphocytes % 23.2 %; Mean Corpuscular HGB Conc 31.7 g/dL (31.6-35.5); Mean Corpuscular Hemoglobin 29.6 pg (28.0-33.3); Mean Corpuscular Volume 93.5 fL (83.0-100.0); Mean Platelet Volume 10.6 fL (9.4-12.4); Monocytes # 0.6 K/mcL (0.0-1.3); Monocytes % 7.9 %; Neutrophils # 4.8 K/mcL (1.6-8.9); Platelet Count 203 K/mcL (140-400); Red Blood Count 2.77 M/mcL (3.82-4.97); Red Cell Distribution Width 16.7 % (11.5-14.5); Segmented Neutrophils % 66.9 %; White Blood Count 7.2 K/mcL (4.3-11.1)
[2021-05-15 02:16] LABS: Alanine Aminotransferase 19 Units/L (7-52); Albumin/Globulin Ratio 1.2 (1.1-2.2); Alkaline Phosphatase 75 Units/L (34-104); Aspartate Amino Transferase 12 Units/L (13-39); BUN/Creatinine Ratio 14 (6-26); Bilirubin,Total 0.5 mg/dL (0.3-1.0); Blood Urea Nitrogen 10 mg/dL (8-23); Calcium 8.7 mg/dL (8.6-10.3); Carbon Dioxide 30 mEq/L (23-29); Chloride 101 mEq/L (98-107); Globulin 2.5 g/dL (2.4-3.5); Glucose 137 mg/dL (70-105); Iron 38 mcg/dL (50-170); Magnesium 1.3 mg/dL (1.6-2.6); Osmolality,Calculated 299 (280-300); Phosphorous 3.1 mg/dL (2.7-4.5); Potassium 3.8 mEq/L (3.5-5.1); Sodium 144 mEq/L (136-145); Total Protein 5.5 g/dL (6.4-8.9); eGFR For African Americans > 60 (> 60); eGFR For Non-African Americans > 60 (> 60)
[2021-05-15 02:21] LABS: % Iron Saturation 21 % (15-50); Transferrin 131 mg/dL (203-362)
[2021-05-15 02:29] LABS: Ferritin 394 ng/mL (10-120)
[2021-05-15 02:34] LABS: Folate 20.1 ng/mL (3.0-16.0)
[2021-05-15] MEDS: Pantoprazole 40 MG VIAL IVP SCH ×2 (05:25→17:35)
[2021-05-15] MEDS ORDERED: Primidone 50 MG TABLET PO SCH (09:00)
[2021-05-15 11:08] LABS: Adenovirus Not Detected (Not Detect); Bordetella Pertussis Not Detected (Not Detect); Chlamydophila pneumoniae Not Detected (Not Detect); Coronavirus 229E Not Detected (Not Detect); Coronavirus HKU1 Not Detected (Not Detect); Coronavirus NL63 Not Detected (Not Detect); Coronavirus OC43 Not Detected (Not Detect); Human Metapneumovirus Not Detected (Not Detect); Human Rhinovirus/Enterovirus Not Detected (Not Detect); Influenza A Subtype 2009 H1 Not Detected (Not Detect); Influenza B Not Detected (Not Detect); Mycoplasma pneumoniae Not Detected (Not Detect); Parainfluenza Virus 1 Not Detected (Not Detect); Parainfluenza Virus 2 Not Detected (Not Detect); Parainfluenza Virus 3 Not Detected (Not Detect); Parainfluenza Virus 4 Not Detected (Not Detect); Respiratory Syncytial Virus Not Detected (Not Detect); SARS-CoV-2 Not Detected (Not Detect)
[2021-05-15] MEDS ORDERED: Isovue-370 500 ML BOTTLE IVP ONE (16:36)
[2021-05-15] MEDS ORDERED: Lidocaine -MPF 2% 2 ML VIAL ONE (23:17)
[2021-05-15] MEDS ORDERED: *HR* Rocuronium Bromide 50 MG/5 ML VIAL ONE (23:17)
[2021-05-15] MEDS ORDERED: *HR* Succinylcholine 200 MG/10 ML VIAL IVP ONE (23:17)
[2021-05-15] MEDS ORDERED: *HR* Propofol 200 MG/20 ML VIAL IVP ONE (23:18)
[2021-05-15] MEDS ORDERED: *HR* FentaNYL (PF) 100 MCG/2 ML VIAL ONE (23:18)
[2021-05-16] MEDS ORDERED: Lidocaine -MPF 4% 5 ML AMPUL ONE (00:04)
[2021-05-16] MEDS ORDERED: Ondansetron 4 MG/2 ML VIAL ONE (01:15)
[2021-05-16] MEDS ORDERED: *HR* Labetalol 20 MG/4 ML SYRINGE IVP PRN (02:01)
[2021-05-16] MEDS ORDERED: Famotidine 20 MG/2 ML VIAL IVP ONE (02:01)
[2021-05-16] MEDS ORDERED: *HR* OxyCODONE Immed Rel 5 MG TABLET PO PRN (02:01)
[2021-05-16] MEDS ORDERED: *HR* HYDROmorphone 2 MG TABLET PO PRN (02:01)
[2021-05-16] MEDS: *HR* HYDROmorphone (PF) 1 MG/ML SYRINGE IVP PRN ×4 (02:22→02:48)
[2021-05-16] MEDS ORDERED: *HR* Promethazine 25 MG/ML VIAL IM PRN (03:31)
[2021-05-16] MEDS ORDERED: D5% in Water 1,000 ML IVC PRN (03:31)
[2021-05-16] MEDS ORDERED: Ondansetron 4 MG/2 ML VIAL IVP PRN (03:31)
[2021-05-16] MEDS ORDERED: Dextrose Gel 15 GM/37.5 ML TUBE PO PRN ×2 (03:31)
[2021-05-16] MEDS ORDERED: *HR* Dextrose 50 % in Water (Vial) 50 ML VIAL IVP PRN (03:31)
[2021-05-16] MEDS ORDERED: Naloxone 0.4 MG/ML INJ IVP PRN (03:31)
[2021-05-16] MEDS: 0.9 % Sodium Chloride 1,000 ML IVC SCH ×3 (03:51→14:41)
[2021-05-16] MEDS: Acetaminophen IV 1,000 MG/100 ML BAG IVPB SCH ×4 (04:31→23:40)
[2021-05-16] MEDS: Pantoprazole 40 MG VIAL IVP SCH ×2 (04:32→17:42)
[2021-05-16] MEDS ORDERED: Lidocaine -MPF 2% 5 ML VIAL SQ ONE (05:46)
[2021-05-16] MEDS ORDERED: *HR* Propofol 500 MG/50 ML BOTTLE IVP ONE (05:46)
[2021-05-16 06:00] LABS: Basophils % 0.1 %; Hematocrit 25.8 % (35.3-44.9); Hemoglobin 8.2 g/dL (11.5-15.4); Immature Granulocytes % 0.9 % (0-4); Lymphocytes # 0.5 K/mcL (0.6-4.6); Lymphocytes % 4.5 %; Mean Corpuscular HGB Conc 31.8 g/dL (31.6-35.5); Mean Corpuscular Hemoglobin 29.3 pg (28.0-33.3); Mean Corpuscular Volume 92.1 fL (83.0-100.0); Monocytes # 0.5 K/mcL (0.0-1.3); Monocytes % 4.8 %; Neutrophils # 9.8 K/mcL (1.6-8.9); Platelet Count 220 K/mcL (140-400); Red Cell Distribution Width 16.3 % (11.5-14.5); Segmented Neutrophils % 89.7 %
[2021-05-16 06:02] LABS: White Blood Count 10.9 K/mcL (4.3-11.1)
[2021-05-16 06:12] LABS: Alanine Aminotransferase 15 Units/L (7-52); Albumin 3.3 g/dL (3.5-5.7); Albumin/Globulin Ratio 1.4 (1.1-2.2); Alkaline Phosphatase 72 Units/L (34-104); Aspartate Amino Transferase 13 Units/L (13-39); BUN/Creatinine Ratio 14 (6-26); Bilirubin,Total 0.9 mg/dL (0.3-1.0); Blood Urea Nitrogen 11 mg/dL (8-23); Calcium 8.8 mg/dL (8.6-10.3); Carbon Dioxide 27 mEq/L (23-29); Chloride 101 mEq/L (98-107); Globulin 2.4 g/dL (2.4-3.5); Glucose 161 mg/dL (70-105); Magnesium 1.2 mg/dL (1.6-2.6); Osmolality,Calculated 287 (280-300); Phosphorous 4.1 mg/dL (2.7-4.5); Potassium 3.8 mEq/L (3.5-5.1); Sodium 137 mEq/L (136-145); Total Protein 5.7 g/dL (6.4-8.9); eGFR For African Americans > 60 (> 60); eGFR For Non-African Americans > 60 (> 60)
[2021-05-16] MEDS: Primidone 50 MG TABLET PO SCH ×2 (08:22→08:42)
[2021-05-16] MEDS: Clindamycin 600 MG/50 ML 600 MG/50 ML IV.SOLN IVPB SCH ×2 (08:41→17:42)
[2021-05-16] MEDS ORDERED: Saliva Stimulant 44.3ml BOTTLE PO PRN (08:50)
[2021-05-16] MEDS ORDERED: Chloraseptic Spray 177 ML BOTTLE MM PRN (08:50)
[2021-05-16] MEDS: Insulin LISPRO 300 UNITS/3 ML VIAL SUBQ SCH (17:30)
[2021-05-17] MEDS: 0.9 % Sodium Chloride 1,000 ML IVC SCH ×3 (00:06→19:39)
[2021-05-17] MEDS: Insulin LISPRO 300 UNITS/3 ML VIAL SUBQ SCH ×5 (00:29→23:51)
[2021-05-17 02:35] LABS: Basophils % 0.1 %; Eosinophils % 0.2 %; Hematocrit 23.5 % (35.3-44.9); Hemoglobin 7.4 g/dL (11.5-15.4); Immature Granulocytes % 0.7 % (0-4); Lymphocytes # 1.7 K/mcL (0.6-4.6); Lymphocytes % 16.8 %; Mean Corpuscular HGB Conc 31.5 g/dL (31.6-35.5); Mean Corpuscular Hemoglobin 29.4 pg (28.0-33.3); Mean Corpuscular Volume 93.3 fL (83.0-100.0); Mean Platelet Volume 10.6 fL (9.4-12.4); Monocytes # 0.6 K/mcL (0.0-1.3); Monocytes % 6.2 %; Neutrophils # 7.7 K/mcL (1.6-8.9); Platelet Count 214 K/mcL (140-400); Red Blood Count 2.52 M/mcL (3.82-4.97); Red Cell Distribution Width 16.8 % (11.5-14.5); White Blood Count 10.1 K/mcL (4.3-11.1)
[2021-05-17 02:51] LABS: Alanine Aminotransferase 10 Units/L (7-52); Albumin 3.1 g/dL (3.5-5.7); Albumin/Globulin Ratio 1.3 (1.1-2.2); Alkaline Phosphatase 61 Units/L (34-104); Aspartate Amino Transferase 13 Units/L (13-39); BUN/Creatinine Ratio 15 (6-26); Bilirubin,Total 0.8 mg/dL (0.3-1.0); Blood Urea Nitrogen 12 mg/dL (8-23); Calcium 8.1 mg/dL (8.6-10.3); Carbon Dioxide 23 mEq/L (23-29); Chloride 103 mEq/L (98-107); Globulin 2.3 g/dL (2.4-3.5); Glucose 130 mg/dL (70-105); Magnesium 1.2 mg/dL (1.6-2.6); Osmolality,Calculated 292 (280-300); Phosphorous 3.6 mg/dL (2.7-4.5); Potassium 4.5 mEq/L (3.5-5.1); Sodium 140 mEq/L (136-145); Total Protein 5.4 g/dL (6.4-8.9); eGFR For African Americans > 60 (> 60); eGFR For Non-African Americans > 60 (> 60)
[2021-05-17] MEDS: Pantoprazole 40 MG VIAL IVP SCH ×2 (05:55→17:32)
[2021-05-17] MEDS: Acetaminophen IV 1,000 MG/100 ML BAG IVPB SCH ×4 (06:27→23:01)
[2021-05-17] MEDS: Primidone 50 MG TABLET PO SCH (08:02)
[2021-05-17] MEDS: Clindamycin 600 MG/50 ML 600 MG/50 ML IV.SOLN IVPB SCH ×4 (08:02→23:09)
[2021-05-17 13:26] LABS: Hematocrit 24.6 % (35.3-44.9); Hemoglobin 7.4 g/dL (11.5-15.4)
[2021-05-17] MEDS: *HR* FentaNYL PATCH 12 MCG PATCH TD SCH ×2 (17:34→19:34)
[2021-05-18 04:19] LABS: Hematocrit 27.8 % (35.3-44.9); Hemoglobin 8.2 g/dL (11.5-15.4); Mean Corpuscular HGB Conc 29.5 g/dL (31.6-35.5); Mean Corpuscular Hemoglobin 28.7 pg (28.0-33.3); Mean Corpuscular Volume 97.2 fL (83.0-100.0); Mean Platelet Volume 11.1 fL (9.4-12.4); Platelet Count 204 K/mcL (140-400); Red Blood Count 2.86 M/mcL (3.82-4.97)
[2021-05-18] MEDS: 0.9 % Sodium Chloride 1,000 ML IVC SCH ×2 (04:34→16:08)
[2021-05-18 04:39] LABS: BUN/Creatinine Ratio 15 (6-26); Blood Urea Nitrogen 12 mg/dL (8-23); Calcium 8.8 mg/dL (8.6-10.3); Carbon Dioxide 24 mEq/L (23-29); Chloride 104 mEq/L (98-107); Glucose 81 mg/dL (70-105); Osmolality,Calculated 295 (280-300); Sodium 143 mEq/L (136-145); eGFR For African Americans > 60 (> 60); eGFR For Non-African Americans > 60 (> 60)
[2021-05-18] MEDS: Acetaminophen IV 1,000 MG/100 ML BAG IVPB SCH ×4 (05:05→23:54)
[2021-05-18] MEDS: Pantoprazole 40 MG VIAL IVP SCH ×2 (05:06→16:08)
[2021-05-18] MEDS: Insulin LISPRO 300 UNITS/3 ML VIAL SUBQ SCH ×3 (05:09→16:43)
[2021-05-18] MEDS: Clindamycin 600 MG/50 ML 600 MG/50 ML IV.SOLN IVPB SCH ×3 (08:11→23:55)
[2021-05-18] MEDS: Primidone 50 MG TABLET PO SCH (08:12)
[2021-05-18] MEDS: Gabapentin 300 MG CAPSULE PO SCH (20:43)
[2021-05-19 01:58] LABS: Hematocrit 21.9 % (35.3-44.9); Mean Corpuscular HGB Conc 30.1 g/dL (31.6-35.5); Mean Corpuscular Hemoglobin 28.9 pg (28.0-33.3); Mean Corpuscular Volume 96.1 fL (83.0-100.0); Platelet Count 207 K/mcL (140-400); Red Blood Count 2.28 M/mcL (3.82-4.97); White Blood Count 8.8 K/mcL (4.3-11.1)
[2021-05-19 01:59] LABS: Hemoglobin 6.6 g/dL (11.5-15.4)
[2021-05-19 02:17] LABS: BUN/Creatinine Ratio 20 (6-26); Blood Urea Nitrogen 18 mg/dL (8-23); Calcium 8.2 mg/dL (8.6-10.3); Carbon Dioxide 23 mEq/L (23-29); Chloride 106 mEq/L (98-107); Glucose 82 mg/dL (70-105); Osmolality,Calculated 289 (280-300); Sodium 139 mEq/L (136-145); eGFR For African Americans > 60 (> 60); eGFR For Non-African Americans > 60 (> 60)
[2021-05-19] MEDS ORDERED: 0.9 % Sodium Chloride 250 ML ONE (04:09)
[2021-05-19] MEDS: Acetaminophen IV 1,000 MG/100 ML BAG IVPB SCH ×4 (06:41→23:19)
[2021-05-19] MEDS: Pantoprazole 40 MG VIAL IVP SCH ×2 (06:42→18:09)
[2021-05-19] MEDS: Insulin LISPRO 300 UNITS/3 ML VIAL SUBQ SCH ×3 (07:55→16:51)
[2021-05-19 08:25] LABS: Hematocrit 26.5 % (35.3-44.9); Hemoglobin 8.1 g/dL (11.5-15.4)
[2021-05-19] MEDS: Primidone 50 MG TABLET PO SCH (08:41)
[2021-05-19] MEDS: Gabapentin 300 MG CAPSULE PO SCH ×3 (08:41→20:52)
[2021-05-19] MEDS: Clindamycin 600 MG/50 ML 600 MG/50 ML IV.SOLN IVPB SCH ×3 (08:42→23:20)
[2021-05-20 02:45] LABS: Hematocrit 24.9 % (35.3-44.9); Hemoglobin 7.8 g/dL (11.5-15.4); Mean Corpuscular HGB Conc 31.3 g/dL (31.6-35.5); Mean Corpuscular Volume 92.6 fL (83.0-100.0); Mean Platelet Volume 10.6 fL (9.4-12.4); Platelet Count 200 K/mcL (140-400); Red Blood Count 2.69 M/mcL (3.82-4.97); Red Cell Distribution Width 17.6 % (11.5-14.5); White Blood Count 8.7 K/mcL (4.3-11.1)
[2021-05-20 03:00] LABS: BUN/Creatinine Ratio 21 (6-26); Blood Urea Nitrogen 20 mg/dL (8-23); Calcium 8.1 mg/dL (8.6-10.3); Carbon Dioxide 23 mEq/L (23-29); Chloride 107 mEq/L (98-107); Glucose 113 mg/dL (70-105); Osmolality,Calculated 291 (280-300); Potassium 3.8 mEq/L (3.5-5.1); Sodium 139 mEq/L (136-145); eGFR For African Americans > 60 (> 60); eGFR For Non-African Americans 55 (> 60)
[2021-05-20] MEDS: Pantoprazole 40 MG VIAL IVP SCH ×2 (05:51→16:40)
[2021-05-20] MEDS: Acetaminophen IV 1,000 MG/100 ML BAG IVPB SCH ×2 (05:51→12:16)
[2021-05-20] MEDS: Insulin LISPRO 300 UNITS/3 ML VIAL SUBQ SCH ×3 (08:13→16:42)
[2021-05-20] MEDS: Aspirin Enteric Coated 81 MG Tablet PO SCH (08:14)
[2021-05-20] MEDS: Furosemide 20 MG TABLET PO SCH (08:15)
[2021-05-20] MEDS: Gabapentin 300 MG CAPSULE PO SCH ×3 (08:15→19:45)
[2021-05-20] MEDS: Primidone 50 MG TABLET PO SCH (08:15)
[2021-05-20] MEDS: allopurinoL 100 MG TABLET PO SCH (08:15)
[2021-05-20] MEDS: Cholecalciferol (D-3) 1,000 UNIT (25MCG) TABLET PO SCH (08:16)
[2021-05-20] MEDS: amLODIPine 5 MG TABLET PO SCH (08:16)
[2021-05-20] MEDS: Clindamycin 600 MG/50 ML 600 MG/50 ML IV.SOLN IVPB SCH ×3 (08:17→23:10)
[2021-05-20] MEDS: Ascorbic Acid 500 MG TABLET PO SCH (08:17)
[2021-05-20] MEDS: Sennosides 8.6 MG TABLET PO SCH (09:18)
[2021-05-20 14:04] LABS: Magnesium 1.3 mg/dL (1.6-2.6)
[2021-05-20] MEDS: *HR* FentaNYL PATCH 12 MCG PATCH TD SCH (17:54)
[2021-05-21] MEDS: Pantoprazole 40 MG VIAL IVP SCH (04:28)
[2021-05-21] MEDS: Insulin LISPRO 300 UNITS/3 ML VIAL SUBQ SCH ×2 (07:13→12:05)
[2021-05-21] MEDS: Furosemide 20 MG TABLET PO SCH (07:39)
[2021-05-21] MEDS: Sennosides 8.6 MG TABLET PO SCH (07:39)
[2021-05-21] MEDS: Clindamycin 600 MG/50 ML 600 MG/50 ML IV.SOLN IVPB SCH ×2 (07:39→15:04)
[2021-05-21] MEDS: amLODIPine 5 MG TABLET PO SCH (07:40)
[2021-05-21] MEDS: Primidone 50 MG TABLET PO SCH (07:40)
[2021-05-21] MEDS: allopurinoL 100 MG TABLET PO SCH (07:40)
[2021-05-21] MEDS: Ascorbic Acid 500 MG TABLET PO SCH (07:40)
[2021-05-21] MEDS: Aspirin Enteric Coated 81 MG Tablet PO SCH (07:40)
[2021-05-21] MEDS: Gabapentin 300 MG CAPSULE PO SCH ×2 (07:40→14:28)
[2021-05-21] MEDS: Cholecalciferol (D-3) 1,000 UNIT (25MCG) TABLET PO SCH (07:41)
[2021-05-21 07:59] LABS: Hemoglobin 9.2 g/dL (11.5-15.4)
[2021-05-21 12:00] VITALS: PULSE 63; TEMP 98.4; O2SAT 95
[2021-05-21] MEDS ORDERED: amLODIPine 5 MG TABLET PO ONE (12:53)
[2021-05-21 13:49] VITALS: BP 186/76
[2021-05-22] MEDS ORDERED: amLODIPine 5 MG TABLET PO SCH (09:00)
== END 2021-05-21 17:08 | DRG 330 ==
LOC: EMEROOARM 22:37 → CDU 22:37 → SUATTDRO 05-14 02:35 → CDU 05-14 04:39 → 3BNU 05-15 23:49 → SUATTDRO 05-16 13:06
PROVIDERS: ADMIT Family Medicine; ATTEND Internal Medicine

== ENCOUNTER 2021-07-29 15:50 | Inpatient (IN) ==
[2021-07-30] MEDS ORDERED: Naloxone 0.4 MG/ML INJ IVP PRN (00:03)
[2021-07-30] MEDS ORDERED: Ondansetron 4 MG/2 ML VIAL IVP PRN (00:03)
[2021-07-30] MEDS ORDERED: 0.9 % Sodium Chloride 1,000 ML IVC SCH (00:15)
[2021-07-30] MEDS ORDERED: D5% in Water 1,000 ML IVC PRN (04:10)
[2021-07-30] MEDS ORDERED: Dextrose Gel 15 GM/37.5 ML TUBE PO PRN ×2 (04:10)
[2021-07-30] MEDS ORDERED: *HR* Dextrose 50 % in Water (Vial) 50 ML VIAL IVP PRN (04:10)
[2021-07-30] MEDS: Insulin LISPRO 300 UNITS/3 ML VIAL SUBQ SCH ×4 (06:20→23:58)
[2021-07-30 06:21] LABS: Basophils % 0.2 %; Eosinophils # 0.2 K/mcL (0.0-0.6); Eosinophils % 1.4 %; Hematocrit 23.4 % (35.3-44.9); Hemoglobin 7.2 g/dL (11.5-15.4); Immature Granulocytes % 1.1 % (0-4); Lymphocytes % 18.3 %; Mean Corpuscular HGB Conc 30.8 g/dL (31.6-35.5); Mean Corpuscular Hemoglobin 29.4 pg (28.0-33.3); Mean Corpuscular Volume 95.5 fL (83.0-100.0); Mean Platelet Volume 10.6 fL (9.4-12.4); Monocytes # 0.7 K/mcL (0.0-1.3); Monocytes % 6.9 %; Neutrophils # 7.8 K/mcL (1.6-8.9); Platelet Count 191 K/mcL (140-400); Red Blood Count 2.45 M/mcL (3.82-4.97); Red Cell Distribution Width 17.9 % (11.5-14.5); Segmented Neutrophils % 72.1 %; White Blood Count 10.8 K/mcL (4.3-11.1)
[2021-07-30 06:33] LABS: INR 1.2; Prothrombin Time 14.1 Seconds (9.4-12.1)
[2021-07-30 06:34] LABS: Activated Partial Thrombo Time 26.7 Seconds (26.0-36.0)
[2021-07-30 06:44] LABS: Alanine Aminotransferase 6 Units/L (7-52); Albumin 2.3 g/dL (3.5-5.7); Alkaline Phosphatase 61 Units/L (34-104); Aspartate Amino Transferase 9 Units/L (13-39); BUN/Creatinine Ratio 28 (6-26); Bilirubin,Total 0.4 mg/dL (0.3-1.0); Blood Urea Nitrogen 26 mg/dL (8-23); Calcium 8.1 mg/dL (8.6-10.3); Carbon Dioxide 34 mEq/L (23-29); Chloride 99 mEq/L (98-107); Globulin 2.2 g/dL (2.4-3.5); Glucose 111 mg/dL (70-105); Magnesium 1.7 mg/dL (1.6-2.6); Osmolality,Calculated 291 (280-300); Potassium 4.5 mEq/L (3.5-5.1); Sodium 138 mEq/L (136-145); Total Protein 4.5 g/dL (6.4-8.9); eGFR For African Americans > 60 (> 60); eGFR For Non-African Americans 58 (> 60)
[2021-07-30] MEDS: *HR* OxyCODONE Immed Rel 5 MG TABLET PO PRN (15:08)
[2021-07-30] MEDS: Magnesium Oxide 400 MG TABLET PO SCH (21:49)
[2021-07-30] MEDS: Gabapentin 100 MG CAPSULE PO SCH (21:49)
[2021-07-31 04:03] LABS: Basophils % 0.2 %; Eosinophils # 0.2 K/mcL (0.0-0.6); Eosinophils % 3.7 %; Immature Granulocytes % 1.2 % (0-4); Lymphocytes # 1.5 K/mcL (0.6-4.6); Lymphocytes % 22.3 %; Mean Corpuscular HGB Conc 30.4 g/dL (31.6-35.5); Mean Corpuscular Hemoglobin 28.9 pg (28.0-33.3); Mean Platelet Volume 10.3 fL (9.4-12.4); Monocytes # 0.5 K/mcL (0.0-1.3); Neutrophils # 4.3 K/mcL (1.6-8.9); Platelet Count 182 K/mcL (140-400); Red Blood Count 2.42 M/mcL (3.82-4.97); Red Cell Distribution Width 17.5 % (11.5-14.5); Segmented Neutrophils % 65.6 %; White Blood Count 6.5 K/mcL (4.3-11.1)
[2021-07-31 04:43] LABS: Alanine Aminotransferase 7 Units/L (7-52); Albumin 2.3 g/dL (3.5-5.7); Albumin/Globulin Ratio 0.9 (1.1-2.2); Alkaline Phosphatase 55 Units/L (34-104); Aspartate Amino Transferase 11 Units/L (13-39); BUN/Creatinine Ratio 26 (6-26); Bilirubin,Total 0.5 mg/dL (0.3-1.0); Blood Urea Nitrogen 20 mg/dL (8-23); Calcium 8.3 mg/dL (8.6-10.3); Carbon Dioxide 33 mEq/L (23-29); Chloride 103 mEq/L (98-107); Globulin 2.6 g/dL (2.4-3.5); Glucose 102 mg/dL (70-105); Osmolality,Calculated 293 (280-300); Potassium 4.7 mEq/L (3.5-5.1); Sodium 140 mEq/L (136-145); Total Protein 4.9 g/dL (6.4-8.9); eGFR For African Americans > 60 (> 60); eGFR For Non-African Americans > 60 (> 60)
[2021-07-31] MEDS: Insulin LISPRO 300 UNITS/3 ML VIAL SUBQ SCH ×4 (05:09→20:38)
[2021-07-31] MEDS: *HR* OxyCODONE Immed Rel 5 MG TABLET PO PRN ×2 (08:54→17:41)
[2021-07-31] MEDS: Gabapentin 100 MG CAPSULE PO SCH ×2 (08:54→19:57)
[2021-07-31] MEDS: amLODIPine 5 MG TABLET PO SCH (08:54)
[2021-07-31] MEDS: Ascorbic Acid 500 MG TABLET PO SCH (08:54)
[2021-07-31] MEDS: Cholecalciferol (D-3) 1,000 UNIT (25MCG) TABLET PO SCH (08:55)
[2021-07-31] MEDS: allopurinoL 100 MG TABLET PO SCH (08:55)
[2021-07-31] MEDS: Primidone 50 MG TABLET PO SCH (08:55)
[2021-07-31] MEDS: Magnesium Oxide 400 MG TABLET PO SCH ×2 (08:55→19:57)
[2021-07-31 19:10] LABS: Hematocrit 26.1 % (35.3-44.9)
[2021-07-31] MEDS: Clindamycin 600 MG/50 ML 600 MG/50 ML IV.SOLN IVPB SCH (19:56)
[2021-07-31] MEDS ORDERED: Ketorolac 30 MG/ML VIAL IVP ONE (20:14)
[2021-08-01] MEDS: Clindamycin 600 MG/50 ML 600 MG/50 ML IV.SOLN IVPB SCH ×4 (00:11→21:15)
[2021-08-01 05:41] LABS: Hematocrit 22.8 % (35.3-44.9); Hemoglobin 7.2 g/dL (11.5-15.4); Mean Corpuscular HGB Conc 31.6 g/dL (31.6-35.5); Mean Corpuscular Hemoglobin 29.8 pg (28.0-33.3); Mean Corpuscular Volume 94.2 fL (83.0-100.0); Mean Platelet Volume 10.7 fL (9.4-12.4); Platelet Count 188 K/mcL (140-400); Red Blood Count 2.42 M/mcL (3.82-4.97); Red Cell Distribution Width 17.3 % (11.5-14.5); White Blood Count 6.1 K/mcL (4.3-11.1)
[2021-08-01] MEDS: Insulin LISPRO 300 UNITS/3 ML VIAL SUBQ SCH ×4 (08:13→21:13)
[2021-08-01] MEDS: amLODIPine 5 MG TABLET PO SCH (09:23)
[2021-08-01] MEDS: Magnesium Oxide 400 MG TABLET PO SCH ×2 (09:23→19:49)
[2021-08-01] MEDS: Cholecalciferol (D-3) 1,000 UNIT (25MCG) TABLET PO SCH (09:23)
[2021-08-01] MEDS: allopurinoL 100 MG TABLET PO SCH (09:23)
[2021-08-01] MEDS: Ascorbic Acid 500 MG TABLET PO SCH (09:24)
[2021-08-01] MEDS: Gabapentin 100 MG CAPSULE PO SCH ×2 (09:24→19:49)
[2021-08-01] MEDS: Primidone 50 MG TABLET PO SCH (09:24)
[2021-08-01] MEDS: Furosemide 20 MG TABLET PO SCH (09:24)
[2021-08-01] MEDS: *HR* OxyCODONE Immed Rel 5 MG TABLET PO PRN ×2 (10:44→19:49)
[2021-08-01] MEDS ORDERED: 0.9 % Sodium Chloride 250 ML ONE (22:10)
[2021-08-02] MEDS: Clindamycin 600 MG/50 ML 600 MG/50 ML IV.SOLN IVPB SCH ×2 (04:17→11:45)
[2021-08-02] MEDS: Insulin LISPRO 300 UNITS/3 ML VIAL SUBQ SCH ×3 (07:24→16:31)
[2021-08-02] MEDS: amLODIPine 5 MG TABLET PO SCH (09:42)
[2021-08-02] MEDS: *HR* OxyCODONE Immed Rel 5 MG TABLET PO PRN ×2 (09:42→17:16)
[2021-08-02] MEDS: Magnesium Oxide 400 MG TABLET PO SCH (09:42)
[2021-08-02] MEDS: Primidone 50 MG TABLET PO SCH (09:42)
[2021-08-02] MEDS: Cholecalciferol (D-3) 1,000 UNIT (25MCG) TABLET PO SCH (09:42)
[2021-08-02] MEDS: Furosemide 20 MG TABLET PO SCH (09:42)
[2021-08-02] MEDS: Ascorbic Acid 500 MG TABLET PO SCH (09:42)
[2021-08-02] MEDS: allopurinoL 100 MG TABLET PO SCH (09:42)
[2021-08-02] MEDS: Gabapentin 100 MG CAPSULE PO SCH (09:43)
[2021-08-02 14:07] LABS: Hematocrit 30.4 % (35.3-44.9); Mean Corpuscular HGB Conc 31.9 g/dL (31.6-35.5); Mean Corpuscular Hemoglobin 29.9 pg (28.0-33.3); Mean Corpuscular Volume 93.8 fL (83.0-100.0); Mean Platelet Volume 10.7 fL (9.4-12.4); Platelet Count 203 K/mcL (140-400); Red Blood Count 3.24 M/mcL (3.82-4.97); Red Cell Distribution Width 17.2 % (11.5-14.5); White Blood Count 8.2 K/mcL (4.3-11.1)
[2021-08-02 14:15] LABS: Hemoglobin 9.7 g/dL (11.5-15.4)
[2021-08-02 14:53] VITALS: BP 125/70; PULSE 73; TEMP 98.2; O2SAT 98
== END 2021-08-02 19:56 | DRG 580 ==
LOC: 3BNU → SUATTDRO 07-31 15:00
PROVIDERS: ADMIT Internal Medicine; ATTEND Registered Nurse
PROC: IRFLUID (2021-07-30 12:00)

== ENCOUNTER 2021-10-20 12:31 | Inpatient (IN) ==
[2021-10-20] MEDS ORDERED: 0.9 % Sodium Chloride 1,000 ML IVC ONE (12:50)
[2021-10-20] MEDS ORDERED: Isovue-370 500 ML BOTTLE IVP ONE (12:50)
[2021-10-20] MEDS ORDERED: Ondansetron 4 MG/2 ML VIAL IVP ONE (12:50)
[2021-10-20 13:34] LABS: Basophils % 0.2 %; Hematocrit 30.3 % (35.3-44.9); Hemoglobin 9.6 g/dL (11.5-15.4); Immature Granulocytes % 1.7 % (0-4); Lymphocytes # 1.3 K/mcL (0.6-4.6); Lymphocytes % 9.1 %; Mean Corpuscular HGB Conc 31.7 g/dL (31.6-35.5); Mean Corpuscular Hemoglobin 32.7 pg (28.0-33.3); Mean Corpuscular Volume 103.1 fL (83.0-100.0); Mean Platelet Volume 10.5 fL (9.4-12.4); Monocytes # 0.8 K/mcL (0.0-1.3); Monocytes % 5.8 %; Neutrophils # 11.8 K/mcL (1.6-8.9); Platelet Count 242 K/mcL (140-400); Red Blood Count 2.94 M/mcL (3.82-4.97); Red Cell Distribution Width 16.7 % (11.5-14.5); Segmented Neutrophils % 83.2 %; White Blood Count 14.2 K/mcL (4.3-11.1)
[2021-10-20 13:51] LABS: Alanine Aminotransferase 14 Units/L (7-52); Albumin 2.4 g/dL (3.5-5.7); Albumin/Globulin Ratio 0.9 (1.1-2.2); Alkaline Phosphatase 98 Units/L (34-104); Amylase 14 Units/L (29-103); Aspartate Amino Transferase 17 Units/L (13-39); BUN/Creatinine Ratio 24 (6-26); Bilirubin,Direct 0.2 mg/dL (0.0-0.2); Bilirubin,Indirect 0.3 mg/dL (0.0-1.0); Bilirubin,Total 0.5 mg/dL (0.3-1.0); Blood Urea Nitrogen 24 mg/dL (8-23); Calcium 8.1 mg/dL (8.6-10.3); Carbon Dioxide 30 mEq/L (23-29); Chloride 101 mEq/L (98-107); Globulin 2.8 g/dL (2.4-3.5); Glucose 146 mg/dL (70-105); Lipase 18 Units/L (11-82); Osmolality,Calculated 291 (280-300); Potassium 4.2 mEq/L (3.5-5.1); Sodium 137 mEq/L (136-145); Total Protein 5.2 g/dL (6.4-8.9); eGFR For African Americans > 60 (> 60); eGFR For Non-African Americans 53 (> 60)
[2021-10-20] MEDS ORDERED: Piperacillin/Tazobactam 3.375 GM in 0.9 % Sodium Chloride Mini Bag 100 ML IVPB ONE (14:31)
[2021-10-20] MEDS ORDERED: Naloxone 0.4 MG/ML INJ IVP PRN (16:30)
[2021-10-20] MEDS ORDERED: D5% in Water 1,000 ML IVC PRN (16:50)
[2021-10-20] MEDS ORDERED: Dextrose Gel 15 GM/37.5 ML TUBE PO PRN ×2 (16:50)
[2021-10-20] MEDS ORDERED: *HR* Dextrose 50 % in Water (Syg) 50 ML SYRINGE IVP PRN (16:50)
[2021-10-20] MEDS: 0.9 % Sodium Chloride 1,000 ML IVC SCH (17:45)
[2021-10-20] MEDS: *HR* FentaNYL PATCH 12 MCG PATCH TD SCH (18:35)
[2021-10-20] MEDS: Gabapentin 100 MG CAPSULE PO SCH (19:47)
[2021-10-20] MEDS: Magnesium Oxide 400 MG TABLET PO SCH (19:47)
[2021-10-20] MEDS: *HR* OxyCODONE Immed Rel 5 MG TABLET PO PRN (19:49)
[2021-10-20] MEDS: Piperacillin/Tazobactam 3.375 GM in 0.9 % Sodium Chloride Mini Bag 100 ML IVPB SCH (23:16)
[2021-10-20] MEDS: *HR* Heparin 5,000 UNIT/ML VIAL SQ SCH (23:18)
[2021-10-21] MEDS: *HR* Heparin 5,000 UNIT/ML VIAL SQ SCH ×2 (03:41→13:49)
[2021-10-21] MEDS: Piperacillin/Tazobactam 3.375 GM in 0.9 % Sodium Chloride Mini Bag 100 ML IVPB SCH ×2 (09:40→16:42)
[2021-10-21] MEDS: Multivit/Ca/Min/Fe/FA 1 TAB TABLET PO SCH (09:42)
[2021-10-21] MEDS: Primidone 50 MG TABLET PO SCH (09:42)
[2021-10-21] MEDS: Magnesium Oxide 400 MG TABLET PO SCH ×2 (09:42→20:33)
[2021-10-21] MEDS: amLODIPine 5 MG TABLET PO SCH (09:42)
[2021-10-21] MEDS: allopurinoL 100 MG TABLET PO SCH (09:42)
[2021-10-21] MEDS: Gabapentin 100 MG CAPSULE PO SCH ×2 (09:42→20:33)
[2021-10-21] MEDS: Insulin LISPRO 300 UNITS/3 ML VIAL SUBQ SCH ×4 (09:44→20:35)
[2021-10-21] MEDS ORDERED: *HR* FentaNYL (PF) 100 MCG/2 ML VIAL IVP ONE (10:40)
[2021-10-21] MEDS ORDERED: Furosemide 40 MG/4 ML VIAL IVP ONE (14:58)
[2021-10-21 17:24] LABS: Basophils % 0.3 %; Eosinophils % 0.3 %; Hematocrit 26.8 % (35.3-44.9); Hemoglobin 8.2 g/dL (11.5-15.4); Immature Granulocytes % 1.2 % (0-4); Lymphocytes # 2.2 K/mcL (0.6-4.6); Lymphocytes % 20.3 %; Mean Corpuscular HGB Conc 30.6 g/dL (31.6-35.5); Mean Corpuscular Hemoglobin 31.4 pg (28.0-33.3); Mean Corpuscular Volume 102.7 fL (83.0-100.0); Mean Platelet Volume 10.5 fL (9.4-12.4); Monocytes # 0.7 K/mcL (0.0-1.3); Monocytes % 6.3 %; Neutrophils # 7.7 K/mcL (1.6-8.9); Platelet Count 205 K/mcL (140-400); Red Blood Count 2.61 M/mcL (3.82-4.97); Red Cell Distribution Width 16.9 % (11.5-14.5); Segmented Neutrophils % 71.6 %; White Blood Count 10.7 K/mcL (4.3-11.1)
[2021-10-21 17:57] LABS: BUN/Creatinine Ratio 25 (6-26); Blood Urea Nitrogen 23 mg/dL (8-23); Calcium 7.7 mg/dL (8.6-10.3); Carbon Dioxide 30 mEq/L (23-29); Chloride 107 mEq/L (98-107); Glucose 105 mg/dL (70-105); Osmolality,Calculated 296 (280-300); Sodium 141 mEq/L (136-145); eGFR For African Americans > 60 (> 60); eGFR For Non-African Americans 59 (> 60)
[2021-10-21] MEDS: *HR* OxyCODONE Immed Rel 5 MG TABLET PO PRN (19:51)
[2021-10-22] MEDS: Piperacillin/Tazobactam 3.375 GM in 0.9 % Sodium Chloride Mini Bag 100 ML IVPB SCH ×3 (01:07→17:13)
[2021-10-22] MEDS: *HR* OxyCODONE Immed Rel 5 MG TABLET PO PRN ×3 (05:28→19:40)
[2021-10-22] MEDS ORDERED: *HR* Enoxaparin 40 MG/0.4 ML SYRINGE SQ SCH (06:00)
[2021-10-22 06:07] LABS: Basophils % 0.3 %; Eosinophils # 0.1 K/mcL (0.0-0.6); Eosinophils % 0.8 %; Hematocrit 22.7 % (35.3-44.9); Hemoglobin 7.3 g/dL (11.5-15.4); Immature Granulocytes % 1.9 % (0-4); Lymphocytes # 2.3 K/mcL (0.6-4.6); Mean Corpuscular HGB Conc 32.2 g/dL (31.6-35.5); Mean Corpuscular Hemoglobin 33.2 pg (28.0-33.3); Mean Corpuscular Volume 103.2 fL (83.0-100.0); Mean Platelet Volume 10.8 fL (9.4-12.4); Monocytes # 0.6 K/mcL (0.0-1.3); Monocytes % 7.5 %; Neutrophils # 4.4 K/mcL (1.6-8.9); Platelet Count 179 K/mcL (140-400); Red Cell Distribution Width 16.9 % (11.5-14.5); Segmented Neutrophils % 58.5 %; White Blood Count 7.4 K/mcL (4.3-11.1)
[2021-10-22 06:25] LABS: BUN/Creatinine Ratio 23 (6-26); Blood Urea Nitrogen 24 mg/dL (8-23); Calcium 7.5 mg/dL (8.6-10.3); Carbon Dioxide 32 mEq/L (23-29); Chloride 105 mEq/L (98-107); Glucose 83 mg/dL (70-105); Osmolality,Calculated 295 (280-300); Potassium 3.9 mEq/L (3.5-5.1); Sodium 141 mEq/L (136-145); eGFR For African Americans > 60 (> 60); eGFR For Non-African Americans 50 (> 60)
[2021-10-22] MEDS: amLODIPine 5 MG TABLET PO SCH (09:38)
[2021-10-22] MEDS: Furosemide 20 MG TABLET PO SCH (09:38)
[2021-10-22] MEDS: Primidone 50 MG TABLET PO SCH (09:38)
[2021-10-22] MEDS: Magnesium Oxide 400 MG TABLET PO SCH ×2 (09:38→19:40)
[2021-10-22] MEDS: Multivit/Ca/Min/Fe/FA 1 TAB TABLET PO SCH (09:39)
[2021-10-22] MEDS: allopurinoL 100 MG TABLET PO SCH (09:39)
[2021-10-22] MEDS: Gabapentin 100 MG CAPSULE PO SCH ×2 (09:39→19:40)
[2021-10-22] MEDS: Insulin LISPRO 300 UNITS/3 ML VIAL SUBQ SCH ×3 (09:40→16:59)
[2021-10-22 21:42] LABS: Bacteria,Urine Few per hpf (None-Few); Bilirubin,Urine Negative (Negative); Blood,Urine Small (Negative); Clarity,Urine Ex.Turbid (Clear); Color,Urine Yellow (Yellow); Glucose,Urine (UA) Normal (Normal); Ketones,Urine Negative (Negative); Leukocyte Esterase,Urine Large (Negative); Nitrite,Urine Negative (Negative); Protein,Urine Trace mg/dL (Neg-Trace); RBC,Urine 0-3 per hpf (0-3); Renal Epithelial Cells,Urine Few per hpf (None-Few); Specific Gravity,Urine 1.015 (1.010-1.025); Squamous Epithelial Cell,Urine Few per hpf (None-Few); Transitional Epi Cells,Urine Few per hpf (None-Few); Urobilinogen,Urine Normal (Normal); WBC,Urine TNTC per hpf (0-3)
[2021-10-22 21:54] LABS: Iron 53 mcg/dL (50-170)
[2021-10-23] MEDS: Insulin LISPRO 300 UNITS/3 ML VIAL SUBQ SCH ×4 (00:21→20:46)
[2021-10-23] MEDS: Piperacillin/Tazobactam 3.375 GM in 0.9 % Sodium Chloride Mini Bag 100 ML IVPB SCH ×4 (00:25→23:57)
[2021-10-23] MEDS: *HR* OxyCODONE Immed Rel 5 MG TABLET PO PRN ×3 (04:35→17:21)
[2021-10-23 04:50] LABS: Basophils % 0.3 %; Eosinophils % 0.7 %; Hematocrit 23.3 % (35.3-44.9); Hemoglobin 7.4 g/dL (11.5-15.4); Immature Granulocytes % 1.9 % (0-4); Lymphocytes # 2.2 K/mcL (0.6-4.6); Lymphocytes % 36.9 %; Mean Corpuscular HGB Conc 31.8 g/dL (31.6-35.5); Mean Corpuscular Hemoglobin 32.6 pg (28.0-33.3); Mean Corpuscular Volume 102.6 fL (83.0-100.0); Mean Platelet Volume 10.1 fL (9.4-12.4); Monocytes # 0.5 K/mcL (0.0-1.3); Monocytes % 8.4 %; Platelet Count 169 K/mcL (140-400); Red Blood Count 2.27 M/mcL (3.82-4.97); Red Cell Distribution Width 16.7 % (11.5-14.5); Segmented Neutrophils % 51.8 %; White Blood Count 5.8 K/mcL (4.3-11.1)
[2021-10-23 05:09] LABS: BUN/Creatinine Ratio 21 (6-26); Blood Urea Nitrogen 19 mg/dL (8-23); Calcium 7.5 mg/dL (8.6-10.3); Carbon Dioxide 30 mEq/L (23-29); Chloride 106 mEq/L (98-107); Glucose 88 mg/dL (70-105); Osmolality,Calculated 290 (280-300); Potassium 3.9 mEq/L (3.5-5.1); Sodium 139 mEq/L (136-145); eGFR For African Americans > 60 (> 60); eGFR For Non-African Americans 59 (> 60)
[2021-10-23] MEDS: allopurinoL 100 MG TABLET PO SCH (09:16)
[2021-10-23] MEDS: Magnesium Oxide 400 MG TABLET PO SCH ×2 (09:16→20:52)
[2021-10-23] MEDS: Primidone 50 MG TABLET PO SCH (09:16)
[2021-10-23] MEDS: Furosemide 20 MG TABLET PO SCH (09:16)
[2021-10-23] MEDS: Multivit/Ca/Min/Fe/FA 1 TAB TABLET PO SCH (09:16)
[2021-10-23] MEDS: Gabapentin 100 MG CAPSULE PO SCH ×2 (09:16→20:52)
[2021-10-23] MEDS: amLODIPine 5 MG TABLET PO SCH (09:16)
[2021-10-23] MEDS: *HR* FentaNYL PATCH 12 MCG PATCH TD SCH (17:12)
[2021-10-23] MEDS: Bisacodyl 10 MG RECTAL SUPPOSITORY RC PRN (20:52)
[2021-10-23] MEDS: 0.9 % Sodium Chloride 1,000 ML IVC SCH (23:46)
[2021-10-24] MEDS: Insulin LISPRO 300 UNITS/3 ML VIAL SUBQ SCH ×4 (08:39→21:21)
[2021-10-24] MEDS: Multivit/Ca/Min/Fe/FA 1 TAB TABLET PO SCH (08:40)
[2021-10-24] MEDS: Furosemide 20 MG TABLET PO SCH (08:41)
[2021-10-24] MEDS: Gabapentin 100 MG CAPSULE PO SCH ×2 (08:41→20:06)
[2021-10-24] MEDS: amLODIPine 5 MG TABLET PO SCH (08:42)
[2021-10-24] MEDS: Piperacillin/Tazobactam 3.375 GM in 0.9 % Sodium Chloride Mini Bag 100 ML IVPB SCH ×3 (08:42→23:52)
[2021-10-24] MEDS: allopurinoL 100 MG TABLET PO SCH (08:42)
[2021-10-24] MEDS: Primidone 50 MG TABLET PO SCH (08:45)
[2021-10-24] MEDS: Magnesium Oxide 400 MG TABLET PO SCH ×2 (08:45→20:06)
[2021-10-24] MEDS: *HR* OxyCODONE Immed Rel 5 MG TABLET PO PRN ×3 (09:23→22:29)
[2021-10-24 15:10] LABS: Hemoglobin 7.1 g/dL (11.5-15.4); Red Blood Count 2.18 M/mcL (3.82-4.97); White Blood Count 6.2 K/mcL (4.3-11.1)
[2021-10-24 15:11] LABS: Hematocrit 22.5 % (35.3-44.9); Mean Corpuscular HGB Conc 31.6 g/dL (31.6-35.5); Mean Corpuscular Hemoglobin 32.6 pg (28.0-33.3); Mean Corpuscular Volume 103.2 fL (83.0-100.0); Mean Platelet Volume 10.8 fL (9.4-12.4); Platelet Count 156 K/mcL (140-400); Red Cell Distribution Width 16.4 % (11.5-14.5)
[2021-10-24 15:15] LABS: BUN/Creatinine Ratio 14 (6-26); Blood Urea Nitrogen 14 mg/dL (8-23); Calcium 7.5 mg/dL (8.6-10.3); Carbon Dioxide 31 mEq/L (23-29); Chloride 107 mEq/L (98-107); Glucose 140 mg/dL (70-105); Osmolality,Calculated 295 (280-300); Sodium 141 mEq/L (136-145); eGFR For African Americans > 60 (> 60); eGFR For Non-African Americans 53 (> 60)
[2021-10-25] MEDS: Insulin LISPRO 300 UNITS/3 ML VIAL SUBQ SCH ×4 (07:22→23:34)
[2021-10-25] MEDS: Furosemide 20 MG TABLET PO SCH (08:29)
[2021-10-25] MEDS: Piperacillin/Tazobactam 3.375 GM in 0.9 % Sodium Chloride Mini Bag 100 ML IVPB SCH (08:29)
[2021-10-25] MEDS: Ascorbic Acid 500 MG TABLET PO SCH (08:29)
[2021-10-25] MEDS: amLODIPine 5 MG TABLET PO SCH (08:29)
[2021-10-25] MEDS: *HR* OxyCODONE Immed Rel 5 MG TABLET PO PRN ×3 (08:29→23:33)
[2021-10-25] MEDS: allopurinoL 100 MG TABLET PO SCH (08:29)
[2021-10-25] MEDS: Multivit/Ca/Min/Fe/FA 1 TAB TABLET PO SCH (08:30)
[2021-10-25] MEDS: Cholecalciferol (D-3) 1,000 UNIT (25MCG) TABLET PO SCH (08:30)
[2021-10-25] MEDS: Gabapentin 100 MG CAPSULE PO SCH ×2 (08:30→20:37)
[2021-10-25] MEDS: Magnesium Oxide 400 MG TABLET PO SCH ×2 (08:30→20:36)
[2021-10-25] MEDS: Primidone 50 MG TABLET PO SCH (08:31)
[2021-10-25 08:56] LABS: Hematocrit 23.5 % (35.3-44.9); Hemoglobin 7.4 g/dL (11.5-15.4); Mean Corpuscular HGB Conc 31.5 g/dL (31.6-35.5); Mean Corpuscular Hemoglobin 32.6 pg (28.0-33.3); Mean Corpuscular Volume 103.5 fL (83.0-100.0); Mean Platelet Volume 10.4 fL (9.4-12.4); Platelet Count 141 K/mcL (140-400); Red Blood Count 2.27 M/mcL (3.82-4.97); Red Cell Distribution Width 16.8 % (11.5-14.5); White Blood Count 5.5 K/mcL (4.3-11.1)
[2021-10-25 09:20] LABS: BUN/Creatinine Ratio 15 (6-26); Blood Urea Nitrogen 13 mg/dL (8-23); Calcium 7.9 mg/dL (8.6-10.3); Carbon Dioxide 34 mEq/L (23-29); Chloride 106 mEq/L (98-107); Glucose 92 mg/dL (70-105); Osmolality,Calculated 288 (280-300); Potassium 4.2 mEq/L (3.5-5.1); Sodium 139 mEq/L (136-145); eGFR For African Americans > 60 (> 60); eGFR For Non-African Americans > 60 (> 60)
[2021-10-25] MEDS ORDERED: polyethylene glycoL 3350 17 GM POWD.PACK PO ONE (12:58)
[2021-10-25] MEDS: cefTRIAXone 2,000 MG in 0.9 % Sodium Chloride Mini Bag 100 ML IVPB SCH (16:40)
[2021-10-25] MEDS: Bisacodyl 10 MG RECTAL SUPPOSITORY RC PRN (16:44)
[2021-10-25] MEDS: metroNIDAZOLE 500 MG TABLET PO SCH (20:36)
[2021-10-26] MEDS: Insulin LISPRO 300 UNITS/3 ML VIAL SUBQ SCH ×4 (09:53→20:58)
[2021-10-26 10:01] LABS: Hemoglobin 8.4 g/dL (11.5-15.4)
[2021-10-26 10:02] LABS: Hematocrit 26.4 % (35.3-44.9); Immature Platelets 6.7 % (1.1-6.1); Mean Corpuscular HGB Conc 31.8 g/dL (31.6-35.5); Mean Corpuscular Hemoglobin 32.6 pg (28.0-33.3); Mean Corpuscular Volume 102.3 fL (83.0-100.0); Mean Platelet Volume 11.2 fL (9.4-12.4); Red Blood Count 2.58 M/mcL (3.82-4.97); Red Cell Distribution Width 16.6 % (11.5-14.5); White Blood Count 7.4 K/mcL (4.3-11.1)
[2021-10-26] MEDS: cefTRIAXone 2,000 MG in 0.9 % Sodium Chloride Mini Bag 100 ML IVPB SCH (10:03)
[2021-10-26] MEDS: Ascorbic Acid 500 MG TABLET PO SCH (10:04)
[2021-10-26] MEDS: allopurinoL 100 MG TABLET PO SCH (10:04)
[2021-10-26] MEDS: Multivit/Ca/Min/Fe/FA 1 TAB TABLET PO SCH (10:05)
[2021-10-26] MEDS: amLODIPine 5 MG TABLET PO SCH (10:05)
[2021-10-26] MEDS: Gabapentin 100 MG CAPSULE PO SCH ×2 (10:05→20:58)
[2021-10-26] MEDS: Furosemide 20 MG TABLET PO SCH (10:05)
[2021-10-26] MEDS: metroNIDAZOLE 500 MG TABLET PO SCH ×3 (10:05→20:58)
[2021-10-26] MEDS: Magnesium Oxide 400 MG TABLET PO SCH ×2 (10:05→20:58)
[2021-10-26] MEDS: Primidone 50 MG TABLET PO SCH (10:05)
[2021-10-26] MEDS: Cholecalciferol (D-3) 1,000 UNIT (25MCG) TABLET PO SCH (10:05)
[2021-10-26 10:07] LABS: BUN/Creatinine Ratio 15 (6-26); Blood Urea Nitrogen 11 mg/dL (8-23); Calcium 7.8 mg/dL (8.6-10.3); Carbon Dioxide 27 mEq/L (23-29); Chloride 107 mEq/L (98-107); Glucose 145 mg/dL (70-105); Osmolality,Calculated 292 (280-300); Potassium 4.3 mEq/L (3.5-5.1); Sodium 140 mEq/L (136-145); eGFR For African Americans > 60 (> 60); eGFR For Non-African Americans > 60 (> 60)
[2021-10-26] MEDS: *HR* OxyCODONE Immed Rel 5 MG TABLET PO PRN ×3 (10:11→22:56)
[2021-10-26] MEDS: *HR* FentaNYL PATCH 12 MCG PATCH TD SCH (16:38)
[2021-10-26] MEDS: Acetaminophen 325 MG TABLET PO PRN (21:02)
[2021-10-27] MEDS: Insulin LISPRO 300 UNITS/3 ML VIAL SUBQ SCH ×3 (09:12→15:21)
[2021-10-27] MEDS: cefTRIAXone 2,000 MG in 0.9 % Sodium Chloride Mini Bag 100 ML IVPB SCH (09:25)
[2021-10-27] MEDS: Multivit/Ca/Min/Fe/FA 1 TAB TABLET PO SCH (09:26)
[2021-10-27] MEDS: Magnesium Oxide 400 MG TABLET PO SCH ×2 (09:26→22:13)
[2021-10-27] MEDS: *HR* OxyCODONE Immed Rel 5 MG TABLET PO PRN ×3 (09:26→22:13)
[2021-10-27] MEDS: Gabapentin 100 MG CAPSULE PO SCH ×2 (09:26→22:13)
[2021-10-27] MEDS: Primidone 50 MG TABLET PO SCH (09:26)
[2021-10-27] MEDS: metroNIDAZOLE 500 MG TABLET PO SCH ×3 (09:26→22:13)
[2021-10-27] MEDS: Ascorbic Acid 500 MG TABLET PO SCH (09:26)
[2021-10-27] MEDS: Cholecalciferol (D-3) 1,000 UNIT (25MCG) TABLET PO SCH (09:26)
[2021-10-27] MEDS: Furosemide 20 MG TABLET PO SCH (09:26)
[2021-10-27] MEDS: amLODIPine 5 MG TABLET PO SCH (09:26)
[2021-10-27] MEDS: allopurinoL 100 MG TABLET PO SCH (09:27)
[2021-10-27 09:58] LABS: % Iron Saturation 79 % (15-50); Transferrin 48 mg/dL (200-400)
[2021-10-27 13:11] LABS: Hematocrit 26.9 % (35.3-44.9); Hemoglobin 8.6 g/dL (11.5-15.4); Mean Corpuscular Hemoglobin 32.7 pg (28.0-33.3); Mean Corpuscular Volume 102.3 fL (83.0-100.0); Mean Platelet Volume 10.7 fL (9.4-12.4); Platelet Count 147 K/mcL (140-400); Red Blood Count 2.63 M/mcL (3.82-4.97); Red Cell Distribution Width 17.1 % (11.5-14.5); White Blood Count 7.2 K/mcL (4.3-11.1)
[2021-10-27 13:29] LABS: BUN/Creatinine Ratio 16 (6-26); Blood Urea Nitrogen 12 mg/dL (8-23); Calcium 7.9 mg/dL (8.6-10.3); Carbon Dioxide 28 mEq/L (23-29); Chloride 104 mEq/L (98-107); Glucose 144 mg/dL (70-105); Osmolality,Calculated 288 (280-300); Sodium 138 mEq/L (136-145); eGFR For African Americans > 60 (> 60); eGFR For Non-African Americans > 60 (> 60)
[2021-10-28 02:05] LABS: Hematocrit 23.1 % (35.3-44.9); Hemoglobin 7.3 g/dL (11.5-15.4); Mean Corpuscular HGB Conc 31.6 g/dL (31.6-35.5); Mean Corpuscular Volume 104.5 fL (83.0-100.0); Mean Platelet Volume 10.5 fL (9.4-12.4); Platelet Count 124 K/mcL (140-400); Red Blood Count 2.21 M/mcL (3.82-4.97); Red Cell Distribution Width 17.2 % (11.5-14.5); White Blood Count 5.7 K/mcL (4.3-11.1)
[2021-10-28 02:28] LABS: BUN/Creatinine Ratio 15 (6-26); Blood Urea Nitrogen 11 mg/dL (8-23); Calcium 7.5 mg/dL (8.6-10.3); Carbon Dioxide 27 mEq/L (23-29); Chloride 105 mEq/L (98-107); Glucose 97 mg/dL (70-105); Osmolality,Calculated 281 (280-300); Potassium 3.9 mEq/L (3.5-5.1); Sodium 136 mEq/L (136-145); eGFR For African Americans > 60 (> 60); eGFR For Non-African Americans > 60 (> 60)
[2021-10-28] MEDS: Insulin LISPRO 300 UNITS/3 ML VIAL SUBQ SCH ×3 (08:58→16:16)
[2021-10-28] MEDS: cefTRIAXone 2,000 MG in 0.9 % Sodium Chloride Mini Bag 100 ML IVPB SCH (09:14)
[2021-10-28] MEDS: Primidone 50 MG TABLET PO SCH (09:16)
[2021-10-28] MEDS: allopurinoL 100 MG TABLET PO SCH (09:16)
[2021-10-28] MEDS: Ascorbic Acid 500 MG TABLET PO SCH (09:16)
[2021-10-28] MEDS: metroNIDAZOLE 500 MG TABLET PO SCH ×3 (09:17→20:26)
[2021-10-28] MEDS: Magnesium Oxide 400 MG TABLET PO SCH ×2 (09:17→20:26)
[2021-10-28] MEDS: *HR* OxyCODONE Immed Rel 5 MG TABLET PO PRN ×3 (09:17→22:28)
[2021-10-28] MEDS: Cholecalciferol (D-3) 1,000 UNIT (25MCG) TABLET PO SCH (09:17)
[2021-10-28] MEDS: Gabapentin 100 MG CAPSULE PO SCH ×2 (09:17→20:26)
[2021-10-28] MEDS: amLODIPine 5 MG TABLET PO SCH (09:17)
[2021-10-28] MEDS: Furosemide 20 MG TABLET PO SCH (09:17)
[2021-10-28] MEDS: Multivit/Ca/Min/Fe/FA 1 TAB TABLET PO SCH (09:17)
[2021-10-28 11:48] LABS: Hematocrit 24.9 % (35.3-44.9); Mean Corpuscular HGB Conc 32.1 g/dL (31.6-35.5); Mean Corpuscular Hemoglobin 33.2 pg (28.0-33.3); Mean Corpuscular Volume 103.3 fL (83.0-100.0); Mean Platelet Volume 10.7 fL (9.4-12.4); Platelet Count 148 K/mcL (140-400); Red Blood Count 2.41 M/mcL (3.82-4.97); Red Cell Distribution Width 17.2 % (11.5-14.5); White Blood Count 5.8 K/mcL (4.3-11.1)
[2021-10-28] MEDS: Acetaminophen 325 MG TABLET PO PRN (12:47)
[2021-10-29] MEDS: Insulin LISPRO 300 UNITS/3 ML VIAL SUBQ SCH ×5 (00:20→17:21)
[2021-10-29] MEDS: *HR* OxyCODONE Immed Rel 5 MG TABLET PO PRN ×2 (05:24→12:12)
[2021-10-29] MEDS: Primidone 50 MG TABLET PO SCH (08:59)
[2021-10-29] MEDS: Gabapentin 100 MG CAPSULE PO SCH (08:59)
[2021-10-29] MEDS: allopurinoL 100 MG TABLET PO SCH (08:59)
[2021-10-29] MEDS: amLODIPine 5 MG TABLET PO SCH (08:59)
[2021-10-29] MEDS: Magnesium Oxide 400 MG TABLET PO SCH (08:59)
[2021-10-29] MEDS: Ascorbic Acid 500 MG TABLET PO SCH (08:59)
[2021-10-29] MEDS: Cholecalciferol (D-3) 1,000 UNIT (25MCG) TABLET PO SCH (08:59)
[2021-10-29] MEDS: Multivit/Ca/Min/Fe/FA 1 TAB TABLET PO SCH (09:00)
[2021-10-29] MEDS: Furosemide 20 MG TABLET PO SCH (09:00)
[2021-10-29 10:07] LABS: Hematocrit 27.2 % (35.3-44.9); Hemoglobin 8.4 g/dL (11.5-15.4); Mean Corpuscular HGB Conc 30.9 g/dL (31.6-35.5); Mean Corpuscular Hemoglobin 32.1 pg (28.0-33.3); Mean Corpuscular Volume 103.8 fL (83.0-100.0); Mean Platelet Volume 10.9 fL (9.4-12.4); Platelet Count 164 K/mcL (140-400); Red Blood Count 2.62 M/mcL (3.82-4.97); Red Cell Distribution Width 17.4 % (11.5-14.5); White Blood Count 5.3 K/mcL (4.3-11.1)
[2021-10-29 10:27] LABS: BUN/Creatinine Ratio 11 (6-26); Blood Urea Nitrogen 9 mg/dL (8-23); Calcium 8.2 mg/dL (8.6-10.3); Carbon Dioxide 31 mEq/L (23-29); Chloride 103 mEq/L (98-107); Glucose 121 mg/dL (70-105); Osmolality,Calculated 286 (280-300); Sodium 138 mEq/L (136-145); eGFR For African Americans > 60 (> 60); eGFR For Non-African Americans > 60 (> 60)
[2021-10-29 14:06] LABS: Adenovirus Not Detected (Not Detect); Bordetella Pertussis Not Detected (Not Detect); Chlamydophila pneumoniae Not Detected (Not Detect); Coronavirus 229E Not Detected (Not Detect); Coronavirus HKU1 Not Detected (Not Detect); Coronavirus NL63 Not Detected (Not Detect); Coronavirus OC43 Not Detected (Not Detect); Human Metapneumovirus Not Detected (Not Detect); Human Rhinovirus/Enterovirus Not Detected (Not Detect); Influenza A Subtype 2009 H1 Not Detected (Not Detect); Influenza B Not Detected (Not Detect); Mycoplasma pneumoniae Not Detected (Not Detect); Parainfluenza Virus 1 Not Detected (Not Detect); Parainfluenza Virus 2 Not Detected (Not Detect); Parainfluenza Virus 3 Not Detected (Not Detect); Parainfluenza Virus 4 Not Detected (Not Detect); Respiratory Syncytial Virus Not Detected (Not Detect); SARS-CoV-2 Not Detected (Not Detect)
[2021-10-29 14:42] VITALS: BP 130/78; PULSE 60; TEMP 98; O2SAT 98
[2021-10-29] MEDS: *HR* FentaNYL PATCH 12 MCG PATCH TD SCH (17:32)
== END 2021-10-29 18:18 | DRG 602 ==
LOC: EMEROOARM 12:31 → 3ANU 12:31 → SUATTDRO 16:56
PROVIDERS: ADMIT Pharmacist; ATTEND Family Medicine
PROC: IRDRAIN (2021-10-21 12:00)